=== PATIENT | male | born 1990 | race Caucasian/White ===

== ENCOUNTER 2020-09-07 13:17 | Emergency (ER) | payer OTHER ==
[~2020-09-07] VITALS: Ht 172.7 cm; Wt 71.1 kg
[2020-09-07 13:18] VITALS: BP 124/78
[2020-09-07] MEDS ORDERED: DOXY100C37 PO (14:30)
[2020-09-07] MEDS ORDERED: ERYT5OIN25 OD (14:30)
== END 2020-09-07 15:10 | disposition home or self-care (01) ==
LOC: M ED 13:17
DX: L73.2 Hidradenitis suppurativa (principal); H00.021 Hordeolum internum right upper eyelid; F17.200 Nicotine dependence, unspecified, uncomplicated; Z88.8 Allergy status to other drugs, medicaments and biological substances

== ENCOUNTER 2020-09-07 18:55 | Emergency (ER) | payer OTHER ==
[~2020-09-07] VITALS: Ht 172.7 cm; Wt 76.4 kg
[~2020-09-07 18:55] MED LIST: DOXY100C37 PO; ERYT5OIN25 OD
[2020-09-07] MEDS ORDERED: DOXYCYCLINE HYCLATE 100MG TABLET PO ONE (20:00)
[2020-09-07 20:48] VITALS: BP 140/80
== END 2020-09-07 21:00 | disposition home or self-care (01) ==
LOC: M ED 18:55
DX: Z13.39 Encounter for screening examination for other mental health and behavioral disorders (principal); F17.200 Nicotine dependence, unspecified, uncomplicated; Z88.8 Allergy status to other drugs, medicaments and biological substances

== ENCOUNTER 2020-09-16 10:31 | Inpatient (IN) | payer OTHER ==
[~2020-09-16] VITALS: Ht 172.7 cm; Wt 73.0 kg
[2020-09-16 11:18] LABS: HEMATOCRIT 49.4 % (42.0-52.0); HEMOGLOBIN 15.9 g/dl (13.5-17.5); MEAN CORPUSCULAR HEMOGLOBIN 28.3 pg (27.0-33.0); MEAN CORPUSCULAR HGB CONC 32.2 g/dl (32.0-36.5); MEAN CORPUSCULAR VOLUME 88.1 fl (80.0-96.0); PLATELET COUNT, AUTOMATED 325 10^3/uL (150-450); RED BLOOD COUNT 5.61 10^6/uL (4.30-6.10); WHITE BLOOD COUNT 5.9 10^3/uL (4.0-10.0)
[2020-09-16] MEDS ORDERED: LORazepam 2 MG TAB PO ONE (11:30)
[2020-09-16 12:03] LABS: ACETAMINOPHEN LEVEL < 2.0 UG/ML (10.0-30.0); ALBUMIN 3.9 GM/DL (3.2-5.2); ALT/SGPT 252 U/L (12-78); BILIRUBIN,DIRECT 0.2 MG/DL (0.0-0.2); BILIRUBIN,TOTAL 0.5 MG/DL (0.2-1.0); BLOOD UREA NITROGEN 13 MG/DL (7-18); CALCIUM LEVEL 9.7 MG/DL (8.5-10.1); CARBON DIOXIDE LEVEL 26 MEQ/L (21-32); CHLORIDE LEVEL 105 MEQ/L (98-107); ETHYL ALCOHOL (ETHANOL) < 0.003 % (0.000-0.010); GLOMERULAR FILTRATION RATE > 60.0 (>60); GLUCOSE, FASTING 147 MG/DL (70-100); POTASSIUM SERUM 4.8 MEQ/L (3.5-5.1); SALICYLATE LEVEL 2.7 MG/DL (5.0-30.0); SODIUM LEVEL 137 MEQ/L (136-145); THYROID STIMULATING HORMONE 0.915 uIU/ML (0.358-3.740); TOTAL PROTEIN 8.3 GM/DL (6.4-8.2)
[2020-09-16 14:21] LABS: AMPHETAMINES LEVEL URINE POSITIVE (NEGATIVE); BARBITURATES URINE NEGATIVE (NEGATIVE); BENZODIAZEPINES URINE NEGATIVE (NEGATIVE); CANNABINOIDS URINE NEGATIVE (NEGATIVE); COCAINE METABOLITE URINE NEGATIVE (NEGATIVE); METHADONE URINE NEGATIVE (NEGATIVE); OPIATES URINE NEGATIVE (NEGATIVE); PHENCYCLIDINE URINE NEGATIVE (NEGATIVE)
[2020-09-16 16:01] LABS: HEPATITIS B SURFACE ANTIGEN NEGATIVE (NEGATIVE)
[2020-09-16 16:29] LABS: HEPATITIS B CORE ANTIBODY IGM NEGATIVE (NEGATIVE)
[2020-09-16 16:32] LABS: HEPATITIS A ANTIBODY IGM NEGATIVE (NEGATIVE); HEPATITIS C VIRUS ABY INDEX > 11.0 INDEX (<0.8)
[2020-09-16] MEDS ORDERED: MOM 30ML SUSPENSION UDC PO PRN (17:15)
[2020-09-16] MEDS ORDERED: ACETAMINOPHEN TAB 650MG DOSE (2X325MG) PO PRN (17:15)
[2020-09-16] MEDS ORDERED: MAALOX 30 ML SUSP *UDC PO PRN (17:15)
[2020-09-16 17:24] VITALS: BP 137/86
--- NOTE | 2020-09-16 19:25 | ECGEPIP ---
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
[2020-09-16] MEDS: traZODone 50 MG TAB PO PRN (20:11)
[2020-09-16] MEDS: NICOTINE POLACRILEX 2 MG GUM PO PRN (20:11)
[2020-09-17 06:30] VITALS: BP 131/78
[2020-09-17] MEDS ORDERED: cloNIDine 0.1 MG TAB PO PRN (09:00)
[2020-09-17] MEDS: NICOTINE POLACRILEX 2 MG GUM PO PRN ×3 (09:34→20:06)
--- NOTE | 2020-09-17 11:05 | HPEPDOC ---
[facility] Medical History & Physical Date of Admission Sep 16, 2020 Date of Service: Sep 17, 2020 History and Physical CHIEF COMPLAINT: Suicidal ideation HISTORY OF PRESENT ILLNESS: 29M with PMHx Hep C admitted for suicidal ideation. Patient reported he intentionally attempted drug overdose with heroin, 'Lianne' and methamphetamine, and was considering jumping off a bridge, in an attempt to kill himself. He reports that he is homeless. He also reports association with substance abusers including family members. PAST MEDICAL HISTORY: #Hep C ALLERGIES: Please see below. REVIEW OF SYSTEMS: Negative except as per HPI. HOME MEDICATIONS: Please see below. PHYSICAL EXAMINATION: VITAL SIGNS: See below General: NAD, lying comfortably in bed Refused remained of physical examination. LABORATORY DATA: See below. MICROBIOLOGY: Please see below. A/P: 29 yo male for suicidal ideation, with PMHx of Hep C. #SI - as per primary team #HepC - was not interested in further follow up - continue to follow o/p as possible Thank you for this consultation. Please re-consult as needed. Vital Signs Vital Signs Date Time Temp Pulse Resp B/P (MAP) Pulse Ox O2 Delivery O2 Flow Rate FiO2 09/17/20 06:30 97.8 89 16 131/78 (95) 100 Room Air Laboratory Data Labs 24H Laboratory Tests 2 09/16/20 11:07: Nucleated Red Blood Cells % (auto) 0.0, Anion Gap 6L, Glomerular Filtration Rate > 60.0, Calcium Level 9.7, Total Bilirubin 0.5, Direct Bilirubin 0.2, Aspartate Amino Transf (AST/SGOT) 199H, Alanine Aminotransferase (ALT/SGPT) 252H, Alkaline Phosphatase 151H, Total Protein 8.3H, Albumin 3.9, Albumin/Globulin Ratio 0.9, Thyroid Stimulating Hormone (TSH) 0.915, Salicylates Level 2.7L, Acetaminophen Level < 2.0L, Ethyl Alcohol Level < 0.003, Hepatitis A IgM Antibody NEGATIVE, Hepatitis B Surface Antigen NEGATIVE, Hepatitis B Core IgM Antibody NEGATIVE, Hepatitis C Antibody Index > 11.0H 09/16/20 13:25: Urine Opiates Screen NEGATIVE, Urine Methadone Screen NEGATIVE, Urine Barbiturates Screen NEGATIVE, Urine Phencyclidine Screen NEGATIVE, Urine Amphetamines Screen POSITIVEH, Urine Benzodiazepines Screen NEGATIVE, Urine Cocaine Metabolite Screen NEGATIVE, Urine Cannabinoids Screen NEGATIVE 09/16/20 13:36: Coronavirus (COVID-19)(PCR) NEGATIVE CBC/BMP Laboratory Tests 09/16/20 11:07 Home Medications No Active Prescriptions or Reported Meds Allergies Coded Allergies: cyclobenzaprine (Verified Allergy, Unknown, 09/07/20) A-FIB/CHADSVASC A-FIB History Current/History of A-Fib/PAF?: No ESTEFANI DELGADO MD Sep 17, 2020 11:05
--- NOTE | 2020-09-17 12:16 | MHHPEPDOC ---
General Date Of Admission: Sep 16, 2020 Legal Status: 9.39 Chief Complaint Suicidal ideation with a plan. History of Present Illness HISTORY OF THE PRESENT ILLNESS: Patient is a 29 -year-old , male, who, as rafael ED report: "Pt presented to ED stated Suicidal with plan to overdose on Herion or Jump off the bridge. Pt reported came up to area a week ago to "visit" his cousin (also known substance abusers). Cousin kicked him out, Pt stated, "on street for 2 days". Pt looking for transportation back to [place]. Pt was denied transportation back to [place] buy DSS. Pt stated, "I will kill myself if I don't get help". Pt reported, "Try to use it everyday"; Per, Meth, and Herion. Pt declines rehab at this time. Pt reported attempted suicide "plenty of times", never reported it.." Psychiatric Review of Systems Depression (2 or more weeks): depressed mood, insomnia/hypersomnia (wakes up in the middle of the night but he goes back to sleep), feelings of excess/guilt, decreased energy, difficulty concentrating (he says he has ADHD), appetite changes (eats all the time), psychomotor changes (he's always moving), suicidal thoughts (with plan to jupoff a bridge) Skye (4 or more days of): decreased need for sleep (only when he is on drugs), engages in risky behavior (uses drugs, he uses heroin IV, per and meth) Psychosis: denies PTSD: denies Anxiety: gen/non-specific anxiety, situational anxiety, stressor related anxiety Anxiety/ 6 months or more of: difficulty concentrating, irritability, sleep d isturbance Past Psychiatric History Previous Psychiatric Diagnosis: Denies Previous Psychiatric Admissions: Denies Suicide Attempts: Denies Psychiatric Follow-up: Denies Psychiatric medications: He says he took Suboxone for 8 months. It ella prescr ibed by a provider in [place] Past Medical History Medical Problems Hepatitis "C" Head Injury: No Seizures: No Hospitalizations: Yes (when his livr nzymes are extremely high. He has been in [facility]) Surgeries: No Family Medical/Psychiatric HX Medical Problems Mother had HTN, diabetes, asthma, hypercholesterolemia, but she . His father is too but he doesn't know what medical problems he had. Psychiatric Disorders: No Addiction: Yes (His father abused substances (he doesn't know which substances) and he abused alcohol and his brother is a recovering addict) Suicide Attemps/Completions: No Addiction History nicotine, cocaine, opioids (he has used Fentanyl), methamphetamines, heroin, other Social History Childhood: It was alright, he lived with his parents, he grew up with his brother who lives in [place] but they don't talk Abuse/Trauma: Denies Current Living Situation: He says he lives by himself, he doesn't talk to his brother, he says his father and his mother re Education: He stepped out of the room and didn't answer my questions Employment: None. Social Support: H sys he doesn't have any social support. Legal: He doesn't provide with an answer. Marital: He didn't answer my question. Mental Status Examination General Appearance: unkempt, disheveled, appears stated age, hospital scubs/clothing Build: average Demeanor: hostile (when this telegraphic typewriter mechanic told him he could not be discharged today.), mistrustful, preoccupied, very figety Eye Contact: average Activity: anxious Behavior: uncooperative (since he was informed he wouldn't be leaving today), resistant, impulsive, aggressive (left the interview slamming doors, called me names on his way out of the door), hyperactive, restless Speech: rapid, spontaneous, normal volume Mood: anxious, angry, irritable Affect: full, inappropriate, anxious, hostile Thought Process: racing, depressed Thought Content (Delusions): none reported, paranoia Thought Content (Other): preoccupied, obsessional (about leaving, he says [place] is pretty bad for him. Obsessed about getting discharged), ideas of reference, appears paranoid Perception (Hallucinations): none reported Perception (Other): none reported Cognition (Impairment of): none reported Cognition(Intelligence Est.): average Oriented: Awake, Alert, Oriented times three Insight: poor Judgment: Poor Psychosis: Denies Diagnoses 1. Unspecified depressive disorder 2. R/O substance induced mood disorder 3. Polysubstance use disorder A-FIB/CHADSVASC A-FIB History Current/History of A-Fib/PAF?: No Current PO Anticoag Therapy: No Age/Risk Factor Scoring CHADSVASC: CHADSVASC Response (Comments) Value Age Risk Factor Age < 65 years old 0 Gender Risk Factor Male 0 Hx of CHF No 0 Hx of HTN No 0 Hx of Stroke/TIA/or VTE No 0 Hx of Diabetes No 0 Hx of Vascular Disease No 0 Total 0 Treatment Treatment ordered: NONE Reason Anticoagulant not given: Not indicated/[id number] Initial Treatment Plan 1. Patient was admitted on a [9.39] status. 2. Complete history was obtained. 3. With patients permission, family will be contacted and database will be expanded. 4. Patients medication regimen will be reviewed and changed accordingly. 5. Patient will be provided with protected environment. 6. Patient will be treated with individual, group, and milieu therapies. 7. Patient will receive supportive psych-education. 8. Discharge planning will commence immediately. 9. Outpatient follow-up treatment will be strongly recommended. 10. The initial treatment plan will focus initially on: * Depression. * Risk for suicide. ESTIMATED LENGTH OF STAY: - DAYS. TIME SPENT COUNSELING AND COORDINATING INITIAL CARE: minutes. Vital Signs Vital Signs Date Time Temp Pulse Resp B/P (MAP) Pulse Ox O2 Delivery O2 Flow Rate FiO2 09/17/20 06:30 97.8 89 16 131/78 (95) 100 Room Air Laboratory Data 24H Labs Laboratory Tests 2 09/16/20 13:25: Urine Opiates Screen NEGATIVE, Urine Methadone Screen NEGATIVE, Urine Barbiturates Screen NEGATIVE, Urine Phencyclidine Screen NEGATIVE, Urine Amphetamines Screen POSITIVEH, Urine Benzodiazepines Screen NEGATIVE, Urine Cocaine Metabolite Screen NEGATIVE, Urine Cannabinoids Screen NEGATIVE 09/16/20 13:36: Coronavirus (COVID-19)(PCR) NEGATIVE Medications No Active Prescriptions or Reported Meds Allergies Coded Allergies: cyclobenzaprine (Verified Allergy, Unknown, 09/07/20) KORTNEY LAMA MD Sep 17, 2020 11:56
[2020-09-17] MEDS: traZODone 50 MG TAB PO PRN (20:05)
[2020-09-17] MEDS: OLANZapine ORAL DISINTEGRATING TAB 5MG PO PRN (20:05)
[2020-09-18 06:19] VITALS: BP 146/85
[2020-09-18] MEDS: OLANZapine ORAL DISINTEGRATING TAB 5MG PO PRN ×2 (10:33→18:42)
[2020-09-18] MEDS: NICOTINE POLACRILEX 2 MG GUM PO PRN ×2 (10:33→17:54)
--- NOTE | 2020-09-18 12:38 | MHIPNPDOC ---
[facility] Progress Note Progress Note DATE OF SERVICE: 09/18/20 HISTORY: Patient is a 29 -year-old , male, who, as rafael ED report: "Pt presented to ED stated Suicidal with plan to overdose on Herion or Jump off the bridge. Pt reported came up to area a week ago to "visit" his cousin (also known substance abusers). Cousin kicked him out, Pt stated, "on street for 2 days". Pt looking for transportation back to [place]. Pt was denied transportation back to [employer] buy DSS. Pt stated, "I will kill myself if I don't get help". Pt reported, "Try to use it everyday"; Lianne, Meth, and Herion. Pt declines rehab at this time. Pt reported attempted suicide "plenty of times", never reported it.." VITAL SIGNS: See below. NEW TEST RESULTS: See below CURRENT MEDICATIONS: See below. MENTAL STATUS EXAMINATION: The patient refused to speak with me because he wants to be discharged and he knows I won't discharge him DIAGNOSES: 1. Unspecified depressive disorder 2. R/O substance induced mood disorder 3. Polysubstance use disorder ASSESSMENT: I was not able to assess him but I understand he has been in his room and yesterday afternoon after he spoke to me, he refused to talk to staff members until late in the afternoon. He is probably having cravings, but when he was admitted he said he wanted to jump [place] the bridge and in the river. Now he denies it but we need to observe him a little bit longer, maybe another day, in order to discharge him. MANAGEMENT PLAN: continue with the same treatment plan TIME SPENT: 5 minutes. Vital Signs Vital Signs Date Time Temp Pulse Resp B/P (MAP) Pulse Ox O2 Delivery O2 Flow Rate FiO2 09/18/20 06:19 97.9 89 18 146/85 (105) 99 Room Air Current Medications Current Medications Medications (Trade) Dose Ordered Sig/Flora Route PRN Reason Start Time Stop Time Status Last Admin Dose Admin Acetaminophen (Tylenol Tab) 650 mg Q6HP PRN PO HEADACHE or DISCOMFORT 09/16/20 17:15 Al Hydrox/Mg Hydrox/Simethicone (Mylanta) 30 ml Q4HP PRN PO HEARTBURN/INDIGESTION 09/16/20 17:15 Clonidine HCl (Catapres) 0.1 mg TID PRN PO HEROIN WITHDRAWAL 09/17/20 09:00 Home Med (Med Rec Complete!) ASDIRECTED XX 09/16/20 14:15 09/16/20 14:07 DC Magnesium Hydroxide (Milk Of Magnesia) 30 ml DAILYPRN PRN PO CONSTIPATION 09/16/20 17:15 Nicotine (Nicorette) 2 mg Q4HP PRN PO NICOTINE WITHDRAWAL 09/16/20 18:00 09/18/20 10:33 Olanzapine (ZyPREXA ZYDIS) 5 mg Q6HP PRN PO AGITATION 09/16/20 17:15 09/18/20 10:33 Trazodone HCl (Desyrel) 50 mg QHSP PRN PO INSOMNIA 09/16/20 17:15 09/17/20 20:05 Allergies Coded Allergies: cyclobenzaprine (Verified Allergy, Unknown, 09/07/20) KORTNEY LAMA MD Sep 18, 2020 12:27
[2020-09-18 17:53] VITALS: BP 145/82
[2020-09-18 17:54] VITALS: BP 145/82
[2020-09-19 06:42] VITALS: BP 129/77
[2020-09-19] MEDS: NICOTINE POLACRILEX 2 MG GUM PO PRN ×3 (08:56→19:15)
--- NOTE | 2020-09-19 11:15 | MHIPNPDOC ---
[facility] Progress Note Progress Note DATE OF SERVICE: 09/19/20 HISTORY: . VITAL SIGNS: See below. NEW TEST RESULTS: . CURRENT MEDICATIONS: See below. MENTAL STATUS EXAMINATION: Patient is a -year old male, who is . Speech: Is . Language skills are . Thought processes including: . Thought content: . Abstract reasoning, and computation: . Description of assoc iations: . Description of abnormal or psychotic thoughts: . Judgment: . Insight: [very limited, good, fair. poor]. Orientation: . Recent and remote memory: . Attention span and concentration: . Language: . Fund of knowledge: . Mood: . Affect: . DIAGNOSES: 1. . 2. . 3. . ASSESSMENT: MANAGEMENT PLAN: . TIME SPENT: minutes. Vital Signs Vital Signs Date Time Temp Pulse Resp B/P (MAP) Pulse Ox O2 Delivery O2 Flow Rate FiO2 09/19/20 06:42 97.7 82 14 129/77 (94) Room Air 09/18/20 06:19 99 Current Medications Current Medications Medications (Trade) Dose Ordered Sig/Flora Route PRN Reason Start Time Stop Time Status Last Admin Dose Admin Acetaminophen (Tylenol Tab) 650 mg Q6HP PRN PO HEADACHE or DISCOMFORT 09/16/20 17:15 Al Hydrox/Mg Hydrox/Simethicone (Mylanta) 30 ml Q4HP PRN PO HEARTBURN/INDIGESTION 09/16/20 17:15 Clonidine HCl (Catapres) 0.1 mg TID PRN PO HEROIN WITHDRAWAL 09/17/20 09:00 09/18/20 17:54 Home Med (Med Rec Complete!) ASDIRECTED XX 09/16/20 14:15 09/16/20 14:07 DC Magnesium Hydroxide (Milk Of Magnesia) 30 ml DAILYPRN PRN PO CONSTIPATION 09/16/20 17:15 Nicotine (Nicorette) 2 mg Q4HP PRN PO NICOTINE WITHDRAWAL 09/16/20 18:00 09/19/20 08:56 Olanzapine (ZyPREXA ZYDIS) 5 mg Q6HP PRN PO AGITATION 09/16/20 17:15 09/18/20 18:42 Trazodone HCl (Desyrel) 50 mg QHSP PRN PO INSOMNIA 09/16/20 17:15 09/17/20 20:05 Allergies Coded Allergies: cyclobenzaprine (Verified Allergy, Unknown, 09/07/20) WHITNEY BENTLEY DO Sep 19, 2020 11:15
[2020-09-19] MEDS: OLANZapine ORAL DISINTEGRATING TAB 5MG PO PRN ×2 (13:44→19:54)
[2020-09-19] MEDS ORDERED: BUPRENORPHINE/NALOXONE 8-2MG SUBLINGUAL TABLET(SUBOXONE) SL ONE (13:45)
[2020-09-19 18:01] VITALS: BP 128/86
[2020-09-19] MEDS: traZODone 50 MG TAB PO PRN (19:54)
[2020-09-19] MEDS ORDERED: IBUPROFEN 600MG TAB PO ONE (20:30)
[2020-09-19] MEDS ORDERED: ONDANSETRON 4 MG ORAL DISINTEGRATING TAB PO ONE (20:30)
[2020-09-20] MEDS: NICOTINE POLACRILEX 2 MG GUM PO PRN ×2 (06:22→10:42)
[2020-09-20 06:46] VITALS: BP 128/87
[2020-09-20] MEDS ORDERED: BUPRENORPHINE/NALOXONE 8-2MG SUBLINGUAL TABLET(SUBOXONE) SL SCH (09:00)
--- NOTE | 2020-09-20 10:52 | MHDSPDOC ---
[facility] Discharge Summary Discharge Summary DATE OF ADMISSION: Sep 16, 2020 at 17:08 DATE OF DISCHARGE: Sep 20, 2020 at 1037 DISCHARGE DIAGNOSES: 1. Unspecified depressive disorder 2. substance induced mood disorder 3. Polysubstance use disorder REASON FOR ADMISSION: Patient is a 29 -year-old [place], Unemployed, [place], , male, who, as per ED report: "Pt presented to ED stated Suicidal with plan to overdose on Heroin or jump off the bridge. Pt reported came up to area a week ago to "visit" his cousin (also known substance abusers). Cousin kicked him out, Pt stated, "on street for 2 days". Pt looking for transportation back to [place]. Pt was denied transportation back to [place] by [facility]. Pt stated, "I will kill myself if I don't get help". Pt reported, "Try to use it everyday"; Lianne, Meth, and Heroin. Pt declines rehab at this time. Pt reported attempted suicide "plenty of times", never reported it." CONSULTANTS INVOLVED: See Medical H + P by Hospitalist TREATMENT AND PROGRESS ON THE UNIT : Patient was admitted to the [facility] on a 9.39 legal status he was afforded the following treatment modalities: 1) Individual Therapy 2) Group Therapy 3) Medication Management 4) Milieu Therapy 5) Safe Environment HOSPITAL COURSE: Patient was admitted to [facility] on a 9.39 legal status and was started on Suboxone and Clonidine. He requested to continue this but this provider is unable to continue it. He was at times very vulgar on the unit and was seen to be reactive. He did not report continued suicidal ideation and it was reported that he had normal mental status over the weekend and was requesting discharge yesterday. DISCHARGE ASSESSMENT: Patient is being discharged today, he was reporting that he is returning to his apartment in [place]. He does not have a PCP and dec lines outpatient mental health services. He also is aware that this provider cannot renew his Suboxone. He declined his Clonidine renewal. Patient was encouraged to be seen at a [facility] and be seen in walk- in hours. Patient verbalized understanding. MENTAL STATUS EXAMINATION ON DISCHARGE: Patient is a 29 -year-old Single, Unemployed, Domiciled, , male who reported suicidal ideation after his cousin kicked him out of his apartment. Patient reported that he came here to visit him but is from [place], [place]. He states that he is a polysubstance abuser and should not have come to see his cousin who is also an "addict". Patient presents with fair hygiene and grooming. Smiles on approach. Has fair psychomotor movements, seems quite restless in the interview but cooperative and pleasant, makes good eye contact. Speech: Is fluid, conversant, normal rate, tone and volume Language skills are intact Thought processes including: linear and goal oriented Thought content: denies depression and anxiety, denies suicidal/homicidal ideation planning or intent. Abstract reasoning, and computation: fair Description of associations: denies, none observed Description of abnormal or psychotic thoughts: denies, none observed. Judgment: fair Insight: fair Orientation: alert and oriented to person, place, time and situation Recent and remote memory: intact Attention span and concentration: good Language: expansive Fund of knowledge: below average Mood: denies Affect: reactive MEDICATIONS ON DISCHARGE: Patient declined all medications PLAN/FOLLOWUP ARRANGEMENTS: He was given times for walk in hours at [facility]) The amount of time spent in the coordination of care for this patient was a pproximately 15 minutes. Vital Signs/I&Os Vital Signs Date Time Temp Pulse Resp B/P (MAP) Pulse Ox O2 Delivery O2 Flow Rate FiO2 09/20/20 06:46 96.9 92 16 128/87 (101) 09/19/20 06:42 Room Air 09/18/20 06:19 99 Medications No Active Prescriptions or Reported Meds Allergies Coded Allergies: cyclobenzaprine (Verified Allergy, Unknown, 09/07/20) OK MCGARRY NP Sep 20, 2020 10:52
== END 2020-09-20 11:45 | disposition home or self-care (01) | DRG 754 ==
LOC: M ED 10:31 → M ED INP 17:08 → M PSY 17:38
PROVIDERS: ADMIT Psychiatry & Neurology Addiction Medicine; ATTEND Psychiatry & Neurology Addiction Medicine
DX: F32.9 Major depressive disorder, single episode, unspecified (principal); F19.94 Other psychoactive substance use, unspecified with psychoactive substance-induced mood disorder; Z88.8 Allergy status to other drugs, medicaments and biological substances; R45.851 Suicidal ideations

== ENCOUNTER 2020-10-20 07:56 | Emergency (ER) | payer OTHER ==
[~2020-10-20] VITALS: Ht 172.7 cm; Wt 79.5 kg
[2020-10-20] MEDS ORDERED: SUBO8MIS SL (08:56)
--- NOTE | 2020-10-20 09:09 | REP ---
INDICATION: cough, congestion r/o pneumonia. COMPARISON: . TECHNIQUE: Upright PA and lateral chest. FINDINGS: The lung spencer are clear. Cardiac size is normal. The pamela, mediastinum and skeletal structures are unremarkable. IMPRESSION: Essentially negative portable chest <Electronically signed by Braydon Kingston > 10/20/20 0928
[2020-10-20] MEDS ORDERED: TESS100C PO ×2 (09:16→21:05)
[2020-10-20 09:26] VITALS: BP 132/94
[2020-10-20 09:31] VITALS: O2SAT 96
[2020-10-20] MEDS ORDERED: TRAZ-257 PO (21:05)
[2020-10-20] MEDS ORDERED: VENL75CA47 PO (21:05)
[2020-10-20] MEDS ORDERED: RISP-8 PO (21:05)
[2020-10-20] MEDS ORDERED: AMMO12LO TOP (21:05)
[2020-10-20] MEDS ORDERED: CLOB0.0548 TOP (21:05)
[2020-10-20] MEDS ORDERED: MELA3TAB30 PO (21:05)
[2020-10-20] MEDS ORDERED: SUBO2MIS SL (21:05)
[2020-10-20] MEDS ORDERED: IBUP40TA PO (21:05)
[2020-10-20] MEDS ORDERED: NICO2GUM50 PO (21:05)
[2020-10-20] MEDS ORDERED: MED REC COMMENT (21:05)
[2020-10-20] MEDS ORDERED: NICO1DIS12 TD (21:05)
== END 2020-10-20 09:33 | disposition home or self-care (01) ==
LOC: M ED 07:56
DX: U07.1 COVID-19 (principal); R55 Syncope and collapse; F19.10 Other psychoactive substance abuse, uncomplicated; B17.9 Acute viral hepatitis, unspecified; F17.200 Nicotine dependence, unspecified, uncomplicated; Z88.1 Allergy status to other antibiotic agents; Z79.899 Other long term (current) drug therapy
CPT/HCPCS: 71045; 99284; U0003

== ENCOUNTER 2020-10-20 17:11 | Inpatient (IN) | payer OTHER ==
[~2020-10-20] VITALS: Ht 172.7 cm; Wt 75.6 kg
[~2020-10-20 17:11] MED LIST changes: +SUBO8MIS SL; +TESS100C PO
[2020-10-20] MEDS ORDERED: LORazepam 2 MG TAB PO STA (17:27)
[2020-10-20 18:25] LABS: RSV AMPLIFICATION NEGATIVE (NEGATIVE)
--- NOTE | 2020-10-20 19:03 | REP ---
INDICATION: Syncope/near-syncope. 6:52 p.m. film. COMPARISON: Comparison chest x-ray October 20, 2020 at 8:48 a.m.. TECHNIQUE: Portable upright AP chest radiograph. FINDINGS: The lungs are well inflated and free of infiltrate. Pleural angles are sharp. Heart size is normal. Pulmonary vasculature is not increased. IMPRESSION: No active disease. <Electronically signed by Gideon Santiago > 10/20/20 [id number]
[2020-10-20] MEDS ORDERED: LORazepam 2 MG/ML VIAL IM STA (19:11)
[2020-10-20] MEDS ORDERED: HALOPERIDOL 5MG/ML VIAL (J1630 PER 1) IM STA (19:11)
[2020-10-20] MEDS ORDERED: LORazepam 2 MG/ML VIAL As Ordered ONE (19:25)
[2020-10-20 19:33] LABS: BASO % 0.2 % (0.0-1.0); HEMATOCRIT 39.4 % (42.0-52.0); LYMPH # 1.1 10^3/uL (1.5-5.0); LYMPH % 10.9 % (24.0-44.0); MEAN CORPUSCULAR HEMOGLOBIN 28.3 pg (27.0-33.0); MEAN CORPUSCULAR VOLUME 85.8 fl (80.0-96.0); NEUTROPHILS # 8.1 10^3/uL (1.5-8.5); NEUTROPHILS % 78.5 % (36.0-66.0); PLATELET COUNT, AUTOMATED 211 10^3/uL (150-450); RED BLOOD COUNT 4.59 10^6/uL (4.30-6.10); WHITE BLOOD COUNT 10.4 10^3/uL (4.0-10.0)
[2020-10-20 19:47] LABS: INR 0.95; PROTHROMBIN TIME 12.9 SECONDS (12.5-14.3)
[2020-10-20 19:48] LABS: PARTIAL THROMBOPLASTIN TIME 33.2 SECONDS (24.2-38.5)
[2020-10-20 19:50] LABS: D-DIMER QUANT 1111.34 ng/ml (<500)
[2020-10-20 19:56] LABS: OSMOLALITY SERUM 279 MOSM/KG (275-295)
[2020-10-20 20:08] LABS: ACETAMINOPHEN LEVEL < 2.0 UG/ML (10.0-30.0); ALBUMIN 4.2 GM/DL (3.2-5.2); ALT/SGPT 378 U/L (12-78); BILIRUBIN,DIRECT 0.4 MG/DL (0.0-0.2); BLOOD UREA NITROGEN 22 MG/DL (7-18); CALCIUM LEVEL 8.6 MG/DL (8.5-10.1); CARBON DIOXIDE LEVEL 26 MEQ/L (21-32); CHLORIDE LEVEL 96 MEQ/L (98-107); CK-MB VALUE MASS 7.7 NG/ML (<3.6); CPK CREATINE PHOSPHOKINASE 2183 U/L (39-308); ETHYL ALCOHOL (ETHANOL) < 0.003 % (0.000-0.010); FREE T4 1.41 NG/DL (0.76-1.46); GLOMERULAR FILTRATION RATE > 60.0 (>60); GLUCOSE, FASTING 107 MG/DL (70-100); LDH LACTATE DEHYDROGENASE 356 U/L (87-241); MAGNESIUM LEVEL 1.5 MG/DL (1.8-2.4); MB/CK RELATIVE INDEX 0.35 (< OR =4); POTASSIUM SERUM 4.1 MEQ/L (3.5-5.1); SALICYLATE LEVEL < 1.7 MG/DL (5.0-30.0); SODIUM LEVEL 132 MEQ/L (136-145); TROPONIN I < 0.02 NG/ML (< 0.10)
--- NOTE | 2020-10-20 20:20 | HPEPDOC ---
[facility] Medical History & Physical Date of Admission Oct 20, 2020 Date of Service: Oct 21, 2020 Attending Physician: PAUL JIM MD History and Physical TIME OF SERVICE: 12:02 AM CHIEF COMPLAINT: Fever HISTORY OF PRESENT ILLNESS: The majority of the history was obtained from Dr. Briones and Dr. Vallejo. The patient was sedated at the time of my evaluation. This 29-year-old homeless gentleman initially presented to the hospital early on the morning of October 20 with complaints of fever, cough productive of green thick sputum and runny nose after being exposed to a person with COVID 19; he had his COVID test done and was told to remain in quarantine until the test results returned. Later on on the afternoon was found by EMS lying on the ground and was noted to have a fever, therefore, he was brought back to the ER. On initial assessment, he was noted to be agitated, was crying and telling staff that he didn't want to return to the hotel where he was in quarantine and that he didn't think he was going to make it. Due to suspicion that he might be intoxicated possibly with Lianne he was given Ativan and Haldol. At the time of my evaluation, the patient was sedated, intermittently arousable but unable to answer questions or consistently follow commands. REVIEW OF SYSTEMS: Unobtainable PAST MEDICAL/ SURGICAL HISTORY: Hepatitis C Anxiety SOCIAL HISTORY: Polysubstance abuse - tobacco & Suboxone Homelessness FAMILY HISTORY: Unobtainable ALLERGIES: Please see below. HOME MEDICATIONS: Please see below. PHYSICAL EXAMINATION: Vital Signs Date Time Temp Pulse Resp B/P (MAP) Pulse Ox O2 Delivery O2 Flow Rate FiO2 10/20/20 17:30 125 20 181/84 96 Room Air 10/21/20 06:20 98.6 GEN: well-nourished / disheveled INTEGUMENT: not flushed/ not jaundice HEENT: lips acyanotic /mucus membranes dry CVS: tachycardic /NMRG LUNGS: lungs are clear to auscultation bilaterally on room air ABDOMEN: Contour (flat) / soft & he doesn't grimace with palpation MSK/EXTREMITIES: NCAT / range of motion intact in all 4 extremities NEURO: Normal Babinski response PSYCH: lethargic / not consistently following commands LABORATORY DATA: 10/21/20 07:07 10/20/20 17:30: Anion Gap 10, Glomerular Filtration Rate > 60.0, Osmolality 279, Calcium Level 8.6, Magnesium Level 1.5L, Total Bilirubin 1.0, Direct Bilirubin 0.4H, Aspartate Amino Transf (AST/SGOT) 158H, Alanine Aminotransferase (ALT/SGPT) 378H, Alkaline Phosphatase 159H, Lactate Dehydrogenase 356H, Total Creatine Kinase 2183H, Creatine Kinase MB 7.7H, Creatine Kinase MB Relative Index 0.35, Troponin I < 0.02, Total Protein 8.0, Albumin 4.2, Albumin/Globulin Ratio 1.1, Thyroid Stimulating Hormone (TSH) 2.670, Free Thyroxine 1.41, Salicylates Level < 1.7L, Acetaminophen Level < 2.0L, Ethyl Alcohol Level < 0.003 10/20/20 17:38: Coronavirus (COVID-19)(PCR) POSITIVEA, Influenza Type A (RT-PCR) NEGATIVE, Influenza Type B (RT-PCR) NEGATIVE, Respiratory Syncytial Virus (PCR) NEGATIVE 10/20/20 18:41: Prothrombin Time 12.9, Prothromb Time International Ratio 0.95, Activated Partial Thromboplast Time 33.2, D-Dimer, Quantitative 1111.34H 10/20/20 18:59: Immature Granulocyte % (Auto) 0.4, Neutrophils (%) (Auto) 78.5H, Lymphocytes (%) (Auto) 10.9L, Monocytes (%) (Auto) 10.0H, Eosinophils (%) (Auto) 0.0, Basophils (%) (Auto) 0.2, Neutrophils # (Auto) 8.1, Lymphocytes # (Auto) 1.1L, Monocytes # (Auto) 1.0H, Eosinophils # (Auto) 0.0, Basophils # (Auto) 0.0, Nucleated Red Blood Cells % (auto) 0.0 IMAGING: Chest xray "IMPRESSION: No active disease." MICROBIOLOGY: Please see below. EKG: And his tachycardia with a heart rate of 100 ASSESSMENT: Mr. Owens is a 29-year-old with a history of hepatitis C, anxiety and polysubstance abuse who will be admitted primary for management rhabdomyolysis; he has mild COVID 19. PLAN: 1. Rhabdomyolysis / elevated CK Likely secondary to agitation from polysubstance abuse rather than COVID 19 CPK > 2000 Gonzalez Rhabdomyolysis Risk Score to predict the risk of severe LUIS ANGEL or mortality in patients with rhabdomyolysis = 0 Plan: admit to medical floor / aggressive hydration / f/u drug screen / f/u serial BMP & CPK 2. Mild COVID-19 Tachycardia may be due to intoxication rather than Covid 19. His LFTs are chronically elevated, which is likely due to hep C, rather than COVID 19. Per d/w EMS reported that the patient had a fever. Plan: contact & air borne precautions /continuous pulse ox/ supplemental O2 to target O2 sats between 92-95% / in 12 H f/u repeat WBC # (if low indicates a poor prognosis), plts (if low indicates bad prognosis), CRP (if high indicates bad prognosis), INR, BMP, fibrinogen, INR, D-dimer, PT, PTT (if patient has DIC indicates bad prognosis), ferritin, LDH, procalcitonin (if low will dc ceftriaxone and azithromycin), f/u sputum cx, strep pneumo, legionella to r/o bacterial PNA, troponins / VBG to assess for hypoxia 3. Agitation likely 2/2 polysubstance abuse Plan: Resume Suboxone and nicotine patches / 1:1 sitter 4. Hypomagnesemia Plan: Mag oxide DVT PROPHYLAXIS: lovenox & aspirin DISPOSITION: home after more than 2 midnight's stay / PFS consult has been placed for assistance with housing Home Medications Scheduled Ammonium Lactate (Ammonium Lactate) 12% Lotion, 1 DOSE TOP BID Buprenorphine HCl/Naloxone HCl (Suboxone 2 mg-0.5 mg Sl Film) 1 Each Film, 1 MIS SL BID Clobetasol Propionate/Emoll (Clobetasol Emollient 0.05% Crm) 0.05% 15GM Cream..g., 1 APLCT TOP BID APPLY TO BACK Melatonin (Melatonin) 3 Mg Tablet, 3 MG PO QHS Nicotine (Nicotine Patch) 21 Mg Patch.td24, 21 MG TD DAILY Risperidone (Risperidone) 1 Mg Tablet, 1 MG PO BID Trazodone HCl (Trazodone HCl) 100 Mg Tablet, 100 MG PO QHS Venlafaxine HCl (Venlafaxine HCl ER) 75 Mg Cap.er.24h, 75 MG PO DAILY Scheduled PRN Benzonatate (Tessalon Perle) 100 Mg Capsule, 100 MG PO TID PRN for COUGH Ibuprofen (Ibuprofen) 400 Mg Tablet, 400 MG PO Q6H PRN for PAIN Nicotine Polacrilex (Nicotine Gum) 2 Mg Gum, 2 MG PO QID PRN for NICOTINE WITHDRAWAL Miscellaneous Medications [Med Rec Comment] MED LIST OBTAINED FROM [facility], MEDS ARE READY BUT HAVE NOT BEEN PICKED UP YET Allergies Coded Allergies: cyclobenzaprine (Verified Allergy, Unknown, 09/07/20) A-FIB/CHADSVASC A-FIB History Current/History of A-Fib/PAF?: No Current PO Anticoag Therapy: No PAUL JIM MD Oct 20, 2020 20:20
[2020-10-20] MEDS ORDERED: MAALOX 30 ML SUSP *UDC PO PRN (20:30)
[2020-10-20] MEDS ORDERED: MOM 30ML SUSPENSION UDC PO PRN (20:30)
[2020-10-20] MEDS ORDERED: NS 1,000 ML IV ONE ×2 (20:30)
[2020-10-20] MEDS ORDERED: ACETAMINOPHEN TAB 650MG DOSE (2X325MG) PO PRN (20:30)
[2020-10-20] MEDS ORDERED: MAGNESIUM OXIDE 400 MG TAB (MAG-OX) PO ONE (20:45)
[2020-10-20] MEDS ORDERED: cefTRIAXone SOD 2 GM in D5W MINI-BAG PLUS 50 ML IV SCH (21:00)
[2020-10-20] MEDS ORDERED: NICO2GUM50 PO (21:05)
[2020-10-20] MEDS ORDERED: RISP-8 PO (21:05)
[2020-10-20] MEDS ORDERED: MELA3TAB30 PO (21:05)
[2020-10-20] MEDS ORDERED: CLOB0.0548 TOP (21:05)
[2020-10-20] MEDS ORDERED: NICO1DIS12 TD (21:05)
[2020-10-20] MEDS ORDERED: AMMO12LO TOP (21:05)
[2020-10-20] MEDS ORDERED: VENL75CA47 PO (21:05)
[2020-10-20] MEDS ORDERED: IBUP40TA PO (21:05)
[2020-10-20] MEDS ORDERED: TRAZ-257 PO (21:05)
[2020-10-20] MEDS ORDERED: MED REC COMMENT (21:05)
[2020-10-20] MEDS ORDERED: TESS100C PO (21:05)
[2020-10-20] MEDS ORDERED: SUBO2MIS SL (21:05)
[2020-10-20 21:48] LABS: HEPATITIS B SURFACE ANTIGEN NEGATIVE (NEGATIVE)
[2020-10-20] MEDS ORDERED: AZITHROMYCIN INJ 500 MG, VIAL MATE ADAPTER 1 EACH in D5W 250 ML IV SCH (22:00)
[2020-10-20 22:17] LABS: HIV 1&2 SCREEN CENTAUR NEGATIVE (NEGATIVE)
[2020-10-21] MEDS ORDERED: NS 1,000 ML IV SCH
[2020-10-21] MEDS ORDERED: NICOTINE POLACRILEX 2 MG GUM PO PRN (01:00)
[2020-10-21] MEDS: traZODone 100 MG TAB PO SCH ×2 (06:16→22:16)
[2020-10-21] MEDS: LACTIC ACID 12% LOTION 225 GM BTL TOP SCH ×3 (06:17→22:20)
[2020-10-21] MEDS: risperiDONE 1 MG TAB PO SCH ×3 (06:17→22:16)
[2020-10-21] MEDS: BUPRENORPHINE/NALOXONE 2-0.5MG SUBLINGUAL TABLET(SUBOXONE) SL SCH ×3 (06:17→22:16)
[2020-10-21] MEDS: CLOBETASOL PROPIONATE EMOLLIENT 0.05% CR 60 GM TOP SCH ×3 (06:17→22:20)
[2020-10-21 06:20] VITALS: BP 120/71
[2020-10-21 06:48] VITALS: O2SAT 98
[2020-10-21] MEDS: NS 1,000 ML IV SCH ×2 (07:01→13:10)
[2020-10-21 07:14] LABS: VENOUS BASE EXCESS 3.1 (-2.0-2.0); VENOUS HCO3 24.9 MEQ/L (23.0-27.0); VENOUS O2 SATURATION 99.4 % (60.0-80.0); VENOUS PARTIAL PRESSURE CO2 29.8 mmHg (38.0-50.0); VENOUS PH 7.539 UNITS (7.330-7.430); VENOUS STANDARD HCO3 27.3 MEQ/L; VENOUS TOTAL CO2 25.8 MEQ/L (24.0-28.0)
[2020-10-21 07:22] LABS: BASO % 0.2 % (0.0-1.0); HEMATOCRIT 39.1 % (42.0-52.0); HEMOGLOBIN 12.7 g/dl (13.5-17.5); LYMPH # 1.5 10^3/uL (1.5-5.0); LYMPH % 14.8 % (24.0-44.0); MEAN CORPUSCULAR HGB CONC 32.5 g/dl (32.0-36.5); MEAN CORPUSCULAR VOLUME 86.3 fl (80.0-96.0); MONO # 1.1 10^3/uL (0.0-0.8); MONO % 10.6 % (0.0-5.0); NEUTROPHILS # 7.3 10^3/uL (1.5-8.5); PLATELET COUNT, AUTOMATED 175 10^3/uL (150-450); RED BLOOD COUNT 4.53 10^6/uL (4.30-6.10); WHITE BLOOD COUNT 9.9 10^3/uL (4.0-10.0)
--- NOTE | 2020-10-21 07:29 | ECGEPIP ---
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
[2020-10-21 07:32] LABS: PROTHROMBIN TIME 13.4 SECONDS (12.5-14.3)
[2020-10-21 07:33] LABS: PARTIAL THROMBOPLASTIN TIME 36.5 SECONDS (24.2-38.5)
[2020-10-21 07:36] LABS: D-DIMER QUANT 959.97 ng/ml (<500)
[2020-10-21 07:56] LABS: CPK CREATINE PHOSPHOKINASE 2155 U/L (39-308); FERRITIN 261 NG/ML (26-388); LDH LACTATE DEHYDROGENASE 272 U/L (87-241); NT-PRO BNP 148 PG/ML (<125); PHOSPHORUS LEVEL 2.2 MG/DL (2.5-4.9); TRIGLYCERIDES LEVEL 46 MG/DL (<150); TROPONIN I < 0.02 NG/ML (< 0.10)
[2020-10-21] MEDS: ASPIRIN 81 MG ENTERIC TAB PO SCH (09:00)
[2020-10-21] MEDS: VENLAFAXINE **XR** 75MG CAPSULE PO SCH (09:00)
[2020-10-21] MEDS: NICOTINE 21MG/24HR 1 EA TRANSDERMAL TD SCH (09:00)
[2020-10-21] MEDS: ENOXAPARIN 40MG/0.4ML SYRINGE (J1650 PER 10MG) SC SCH (09:00)
[2020-10-21 20:00] VITALS: BP 127/64
--- NOTE | 2020-10-21 21:07 | IPNPDOC ---
Subjective Date Seen The patient was seen on 10/21/20. Subjective Chief Complaint/HPI Mr. Owens is a 29 year old male who's homeless and COVID 19 positive here with rhabdomyolysis. Today, he denies any chest pain, dyspnea, or abdominal pain. Spoke with PFS, Miguel Bradshaw, about case. When patient is cleared, he will have a food box and a place to stay until Saturday10/25/2020. Objective Physical Examination General Exam: Positive: Alert, Cooperative Eye Exam: Positive: EOMI; Negative: Sclera icteric ENT Exam: Positive: Atraumatic Neck Exam: Positive: Supple Chest Exam: Positive: Clear to auscultation Heart Exam: Positive: Rate Normal, Regular Rhythm Abdomen Exam: Positive: Normal bowel sounds, Soft; Negative: Tenderness Extremity Exam: Negative: Edema Skin Exam: Positive: Nl turgor and temperature Neuro Exam: Positive: Cranial Nerves 3-12 NL Psych Exam: Positive: Mental status NL, Mood NL Assessment /Plan Assessment Mr. Owens is a 29 year old male who's homeless and COVID 19 positive here with rhabdomyolysis. When his rhabdomyolysis improves, he will have a place and food until 10/25/2020. Until then, continue hydration and monitoring CPK Plan/VTE VTE Prophylaxis Ordered?: Yes Plan 1. Rhabdomyolysis -Continue to trend CPK -Continue IVF 2. COVID 19 positive -Not on supplemental oxygen -Supportive care -Isolation 3. Agitation 2/2 polysubstance abuse -This afternoon, he was compliant with me -Continue suoxone and nicotine patches -1:1 sitter 4. Hypomagnesemia -Mag Ox 5. DVT ppx -[facility] VS[facility]O Vital Signs Date Time Temp Pulse Resp B/P (MAP) Pulse Ox O2 Delivery O2 Flow Rate FiO2 10/21/20 20:00 101.1 96 22 127/64 (85) 94 Room Air Laboratory Data 24H LABS Laboratory Tests 2 10/20/20 21:44: Lactic Acid Level 0.8 10/21/20 07:07: Immature Granulocyte % (Auto) 0.4, Neutrophils (%) (Auto) 74.0H, Lymphocytes (%) (Auto) 14.8L, Monocytes (%) (Auto) 10.6H, Eosinophils (%) (Auto) 0.0, Basophils (%) (Auto) 0.2, Neutrophils # (Auto) 7.3, Lymphocytes # (Auto) 1.5, Monocytes # (Auto) 1.1H, Eosinophils # (Auto) 0.0, Basophils # (Auto) 0.0, Nucleated Red Blood Cells % (auto) 0.0, Prothrombin Time 13.4, Prothromb Time International Ratio 1.00, Activated Partial Thromboplast Time 36.5, Fibrinogen 390, D-Dimer, Quantitative 959.97H, Blood Gas Bicarbonate Standard 27.3, Venous Blood pH 7.539H, Venous Blood Partial Pressure CO2 29.8L, Venous Blood Partial Pressure O2 216.0H, Venous Blood Total Carbon Dioxide 25.8, Venous Blood HCO3 24.9, Venous Blood Oxygen Saturation 99.4H, Venous Blood Base Excess 3.1H, Phosphorus Level 2.2L, Ferritin 261, Lactate Dehydrogenase 272H, Total Creatine Kinase 2155H, Troponin I < 0.02, C-Reactive Protein, Quantitative 10.80H, RZ-Gcl-C-Type Natriuretic Peptide 148H, Triglycerides Level 46, Procalcitonin 1.08 CBC/BMP Laboratory Tests 10/21/20 07:07 Microbiology Microbiology 10/20/20 Blood Culture, Received Pending AILIN RUSSO DO Oct 21, 2020 21:07
[2020-10-22] MEDS: NS 1,000 ML IV SCH (00:22)
[2020-10-22] MEDS ORDERED: cefTRIAXone SOD 2 GM in D5W MINI-BAG PLUS 50 ML IV SCH (03:00)
[2020-10-22 04:00] VITALS: BP 114/52
[2020-10-22] MEDS ORDERED: AZITHROMYCIN INJ 500 MG, VIAL MATE ADAPTER 1 EACH in D5W 250 ML IV SCH (05:00)
[2020-10-22 07:38] LABS: HEMATOCRIT 38.6 % (42.0-52.0); HEMOGLOBIN 12.3 g/dl (13.5-17.5); MEAN CORPUSCULAR HEMOGLOBIN 28.6 pg (27.0-33.0); MEAN CORPUSCULAR HGB CONC 31.9 g/dl (32.0-36.5); MEAN CORPUSCULAR VOLUME 89.8 fl (80.0-96.0); PLATELET COUNT, AUTOMATED 131 10^3/uL (150-450); WHITE BLOOD COUNT 7.6 10^3/uL (4.0-10.0)
[2020-10-22] MEDS: LACTIC ACID 12% LOTION 225 GM BTL TOP SCH (09:00)
[2020-10-22] MEDS: CLOBETASOL PROPIONATE EMOLLIENT 0.05% CR 60 GM TOP SCH (09:00)
[2020-10-22] MEDS: risperiDONE 1 MG TAB PO SCH (09:00)
[2020-10-22] MEDS: ASPIRIN 81 MG ENTERIC TAB PO SCH (09:00)
[2020-10-22] MEDS: VENLAFAXINE **XR** 75MG CAPSULE PO SCH (09:00)
[2020-10-22] MEDS: BUPRENORPHINE/NALOXONE 2-0.5MG SUBLINGUAL TABLET(SUBOXONE) SL SCH (09:00)
[2020-10-22] MEDS: ENOXAPARIN 40MG/0.4ML SYRINGE (J1650 PER 10MG) SC SCH (09:00)
[2020-10-22] MEDS: NICOTINE 21MG/24HR 1 EA TRANSDERMAL TD SCH (09:00)
[2020-10-22 10:20] LABS: BLOOD UREA NITROGEN 8 MG/DL (7-18); CARBON DIOXIDE LEVEL 26 mmol/L (20-29); CHLORIDE LEVEL 106 MEQ/L (98-107); CREATININE FOR GFR 0.87 MG/DL (0.70-1.30); GLOMERULAR FILTRATION RATE > 60.0 (>60); GLUCOSE, FASTING 91 MG/DL (70-100); POTASSIUM SERUM 3.6 MEQ/L (3.5-5.1); SODIUM LEVEL 139 MEQ/L (136-145)
[2020-10-22 10:21] LABS: CALCIUM LEVEL 7.8 MG/DL (8.5-10.1); CPK CREATINE PHOSPHOKINASE 1158 U/L (39-308)
[2020-10-22] MEDS ORDERED: CEFD1CAP8 PO (11:22)
--- NOTE | 2020-10-22 22:52 | DS.PDOC ---
Discharge Summary General Date of Admission Oct 20, 2020 at 20:24 Date of Discharge Oct 22, 2020 Attending Physician: AILIN RUSSO DO Discharge Summary PROCEDURES PERFORMED DURING STAY: None ADMITTING DIAGNOSES: 1. Rhabdomyolysis 2. COVID 19 positive 3. Polysubstance abuse 4. Hypomagnesemia DISCHARGE DIAGNOSES: 1. Rhabdomyolysis 2. COVID 19 positive 3. Polysubstance abuse 4. Hypomagnesemia COMPLICATIONS/CHIEF COMPLAINT: Covid-19/Polysubstance Abuse/Homelessness. HISTORY OF PRESENT ILLNESS: Mr. Benjamin Owens is a 29 year old homeless male who was found by EMS lying on the ground. Most of the H&P was obtained from Dr. Briones and Dr. Vallejo as patient was sedated at the time of admission. 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 He was tested for COVID 19 and was asked to remain in quarantine until his test returned. Later that afternoon, EMS found him lying on the ground with a fever. He was brought back to the ER. In the ED, he was agitated. He was crying and telling staff that he did not want to return to the hotel where he was in quarantine. He did not think he was going to make it. There was suspicion that he mgiht be intoxicated with Lianne. He was given Haldol and Ativan for agitation. He was noted to have rhabdomyolysis and was admitted HOSPITAL COURSE: During his admission he was given IVF and his rhabdomyolysis improved. He was more calm and a sitter was no longer needed. He was anxious to go home. PFS coordinated a safe discharge plan with [facility]. Patient will have a place to stay until 10/25/2020 at [facility]. He will also be provided a food box through 10/25/2020. Today, he felt well. Denied any chest pain, dyspnea, abdominal pain, or dysuria. He was anxious to leave and was discharged with an 3 days of cefdinir to complete a 5 day course of antibiotics. He already had 3 days of azithromycin in patient. Antibiotic was sent to [facility] on [address] DISCHARGE MEDICATIONS: Please see below. ALLERGIES: Please see below. PHYSICAL EXAMINATION ON DISCHARGE: VITAL SIGNS: Please see below. GENERAL: Comfortable, in no apparent distress HEENT: EOMI, Sclera clear NECK: Supple CARDIOVASCULAR EXAMINATION: Regular rate and rhythm RESPIRATORY EXAMINATION: Lungs clear to auscultation bilaterally ABDOMINAL EXAMINATION: Soft, non-tender, normal bowel sounds EXTREMITIES: No pitting edema bilaterally SKIN: Warm and dry NEUROLOGICAL EXAMINATION: CN 3-12 grossly intact PSYCHIATRIC EXAMINATION: Normal mood and affect LABORATORY DATA: Please see below. IMAGING: CXR No active disease. PROGNOSIS: Good ACTIVITY: As tolerated. DIET: As tolerated DISCHARGE PLAN: To hotel to self quarantine DISPOSITION: Home Health Service. DISCHARGE INSTRUCTIONS: 1. Self quarantine in hotel 2. Follow up with PCP in 1 week DISCHARGE CONDITION: Stable. Total time spent in discharge planning, discharge summary, and medication reconciliation: 45 minutes Vital Signs/I&Os Vital Signs Date Time Temp Pulse Resp B/P (MAP) Pulse Ox O2 Delivery O2 Flow Rate FiO2 10/22/20 06:00 98 Room Air 10/22/20 04:00 98.7 76 18 114/52 (72) 1.0 I&O- Last 24 Hours up to 6 AM 10/22/20 06:00 Intake Total 3778 ml Output Total 2525 ml Balance 1253 ml Laboratory Data Labs 24H Laboratory Tests 2 10/22/20 03:10: 10/22/20 06:28: Nucleated Red Blood Cells % (auto) 0.0, Anion Gap 7L, Glomerular Filtration Rate > 60.0, Calcium Level 7.8L, Total Creatine Kinase 1158H CBC/BMP Laboratory Tests 10/22/20 06:28 Microbiology Microbiology 10/20/20 Blood Culture - Preliminary, Resulted No Growth after 48 hours. All Specime... Discharge Medications Scheduled Ammonium Lactate (Ammonium Lactate) 12% Lotion, 1 DOSE TOP BID, (Reported) Buprenorphine HCl/Naloxone HCl (Suboxone 2 mg-0.5 mg Sl Film) 1 Each Film, 1 MIS SL BID, (Reported) Cefdinir (Cefdinir) 300 Mg Capsule, 300 MG PO BID Clobetasol Propionate/Emoll (Clobetasol Emollient 0.05% Crm) 0.05% 15GM Cream..g., 1 APLCT TOP BID, (Reported) APPLY TO BACK Melatonin (Melatonin) 3 Mg Tablet, 3 MG PO QHS, (Reported) Nicotine (Nicotine Patch) 21 Mg Patch.td24, 21 MG TD DAILY, (Reported) Risperidone (Risperidone) 1 Mg Tablet, 1 MG PO BID, (Reported) Trazodone HCl (Trazodone HCl) 100 Mg Tablet, 100 MG PO QHS, (Reported) Venlafaxine HCl (Venlafaxine HCl ER) 75 Mg Cap.er.24h, 75 MG PO DAILY, (Reported) Scheduled PRN Benzonatate (Tessalon Perle) 100 Mg Capsule, 100 MG PO TID PRN for COUGH, (Reported) Ibuprofen (Ibuprofen) 400 Mg Tablet, 400 MG PO Q6H PRN for PAIN, (Reported) Nicotine Polacrilex (Nicotine Gum) 2 Mg Gum, 2 MG PO QID PRN for NICOTINE WITHDRAWAL, (Reported) Miscellaneous Medications [Med Rec Comment] , (Reported) MED LIST OBTAINED FROM [facility], MEDS ARE READY BUT HAVE NOT BEEN PI CKED UP YET Allergies Coded Allergies: cyclobenzaprine (Verified Allergy, Unknown, 09/07/20) AILIN RUSSO DO Oct 22, 2020 22:52
[2020-10-24 16:11] LABS: HEPATITIS B CORE ANTIBODY IGG Negative (Negative); MYCOPLASMA PNEUMONIAE IgG 242 U/mL (0-99); MYCOPLASMA PNEUMONIAE IgM 884 U/mL (0-769)
== END 2020-10-22 13:25 | disposition home health service (06) | DRG 351 ==
LOC: M ED 17:11 → EDBD 17:11 → M ED INP 20:24 → ENRESERV 10-21 04:02 → M 4MAIN 10-21 06:20
PROVIDERS: ADMIT Internal Medicine; ATTEND Internal Medicine
DX: M62.82 Rhabdomyolysis (principal); U07.1 COVID-19; E83.42 Hypomagnesemia; F19.10 Other psychoactive substance abuse, uncomplicated; Z59.0 Homelessness; Z79.899 Other long term (current) drug therapy; Z88.8 Allergy status to other drugs, medicaments and biological substances; F17.200 Nicotine dependence, unspecified, uncomplicated

== ENCOUNTER 2020-11-01 07:39 | Emergency (ER) | payer OTHER ==
[~2020-11-01] VITALS: Ht 172.7 cm; Wt 75.3 kg
[~2020-11-01 07:39] MED LIST changes: +AMMO12LO TOP; +CEFD1CAP8 PO; +CLOB0.0548 TOP; +IBUP40TA PO; +MED REC COMMENT; +MELA3TAB30 PO; +NICO1DIS12 TD; +NICO2GUM50 PO; +RISP-8 PO; +SUBO2MIS SL; +TRAZ-257 PO; +VENL75CA47 PO
[2020-11-01] MEDS ORDERED: IBUPROFEN 800 MG TAB PO ONE (09:00)
[2020-11-01 10:18] VITALS: BP 133/69
== END 2020-11-01 10:24 | disposition home or self-care (01) ==
LOC: M ED 07:39
DX: R51.9 Headache, unspecified (principal); F17.200 Nicotine dependence, unspecified, uncomplicated; B18.2 Chronic viral hepatitis C; F41.9 Anxiety disorder, unspecified; F32.89 Other specified depressive episodes; F15.10 Other stimulant abuse, uncomplicated; Z79.899 Other long term (current) drug therapy

== ENCOUNTER 2021-05-11 19:42 | Inpatient (IN) | payer MEDICAID, OTHER ==
[~2021-05-11] VITALS: Ht 172.7 cm; Wt 92.2 kg
[~2021-05-11 19:42] MED LIST changes: -DOXY100C37 PO; +DOXY1CAP62 PO; +IBUP1TAB5 PO; -IBUP40TA PO
[2021-05-11] MEDS ORDERED: BUPR1FIL SL (20:07)
[2021-05-11 22:00] LABS: HEMATOCRIT 40.6 % (42.0-52.0); HEMOGLOBIN 13.5 g/dl (13.5-17.5); MEAN CORPUSCULAR HEMOGLOBIN 29.3 pg (27.0-33.0); MEAN CORPUSCULAR HGB CONC 33.3 g/dl (32.0-36.5); MEAN CORPUSCULAR VOLUME 88.3 fl (80.0-96.0); PLATELET COUNT, AUTOMATED 227 10^3/uL (150-450); WHITE BLOOD COUNT 6.1 10^3/uL (4.0-10.0)
[2021-05-11 22:21] LABS: AMPHETAMINES LEVEL URINE NEGATIVE (NEGATIVE); BARBITURATES URINE NEGATIVE (NEGATIVE); BENZODIAZEPINES URINE NEGATIVE (NEGATIVE); CANNABINOIDS URINE NEGATIVE (NEGATIVE); COCAINE METABOLITE URINE NEGATIVE (NEGATIVE); METHADONE URINE NEGATIVE (NEGATIVE); OPIATES URINE NEGATIVE (NEGATIVE); PHENCYCLIDINE URINE NEGATIVE (NEGATIVE)
[2021-05-11 22:30] LABS: ACETAMINOPHEN LEVEL < 2.0 UG/ML (10.0-30.0); ALBUMIN 3.6 GM/DL (3.2-5.2); ALT/SGPT 59 U/L (12-78); BILIRUBIN,DIRECT < 0.1 MG/DL (0.0-0.2); BILIRUBIN,TOTAL 0.3 MG/DL (0.2-1.0); BLOOD UREA NITROGEN 23 MG/DL (7-18); CALCIUM LEVEL 8.9 MG/DL (8.5-10.1); CARBON DIOXIDE LEVEL 29 MEQ/L (21-32); CHLORIDE LEVEL 106 MEQ/L (98-107); CREATININE FOR GFR 0.83 MG/DL (0.70-1.30); ETHYL ALCOHOL (ETHANOL) < 0.003 % (0.000-0.010); GLOMERULAR FILTRATION RATE > 60.0 (>60); GLUCOSE, FASTING 102 MG/DL (70-100); POTASSIUM SERUM 4.2 MEQ/L (3.5-5.1); SALICYLATE LEVEL 3.2 MG/DL (5.0-30.0); SODIUM LEVEL 141 MEQ/L (136-145); TOTAL PROTEIN 7.2 GM/DL (6.4-8.2)
[2021-05-12] MEDS: BUPRENORPHINE/NALOXONE 8-2MG SUBLINGUAL TABLET(SUBOXONE) SL SCH (08:47)
[2021-05-12] MEDS: NICOTINE POLACRILEX 2 MG GUM PO PRN ×2 (11:24→20:29)
[2021-05-12] MEDS ORDERED: LORazepam 2 MG TAB PO STA (12:05)
[2021-05-12 13:09] LABS: RSV AMPLIFICATION NEGATIVE (NEGATIVE)
[2021-05-12] MEDS ORDERED: MAALOX 30 ML SUSP *UDC PO PRN (17:00)
[2021-05-12] MEDS ORDERED: ACETAMINOPHEN TAB 650MG DOSE (2X325MG) PO PRN (17:00)
[2021-05-12] MEDS ORDERED: traZODone 50 MG TAB PO PRN (17:00)
[2021-05-12] MEDS ORDERED: MOM 30ML SUSPENSION UDC PO PRN (17:00)
[2021-05-12 18:44] VITALS: BP 137/71
[2021-05-12] MEDS ORDERED: LORazepam 1 MG TAB PO PRN (23:05)
[2021-05-13 05:53] VITALS: BP 119/66
[2021-05-13] MEDS: NICOTINE POLACRILEX 2 MG GUM PO PRN ×4 (06:07→20:37)
[2021-05-13] MEDS: BUPRENORPHINE/NALOXONE 8-2MG SUBLINGUAL TABLET(SUBOXONE) SL SCH (08:52)
[2021-05-13] MEDS ORDERED: NICOTINE 21MG/24HR 1 EA TRANSDERMAL TD SCH (09:00)
--- NOTE | 2021-05-13 09:49 | MHHPEPDOC ---
General Date Of Admission: May 12, 2021 Legal Status: 9.39 Chief Complaint I was tired of life and I just wanted to ]. History of Present Illness HISTORY OF THE PRESENT ILLNESS: Patient is a 30 -year-old , male, who [has a long history of opiate dependence but no previous inpatient psychiatric treatment. Patient came to the emergency room reporting increasing depression and strong suicidal thoughts for the past month. He stated that he has been in treatment for his drug dependence is currently taking Suboxone but has been using heroin on and off and has been homeless for the past 2 years. He reported that he is tired of living a life like this and was going to end his life and took an overdose of the heroin about 2 weeks ago but did not tell anybody about his suicidal intent 1 was not admitted. He stated that he is having more suicidal thoughts and was making detailed plans of overdosing on heroin again but instead came to the emergency room seeking help. He denies any psychotic symptoms denies any clear precipitant but stated that he is tired of his life wants help instead of dying and failure to that he can use another inpatient rehabilitation treatment. He claims that he had 2 previous rehab treatment but the last one was several years ago and feels that he needs inpatient treatment now. He is denying any psychotic symptoms denies any history of skye and denies any command hallucination and is willing to contract for safety.]. Psychiatric Review of Systems Depression (2 or more weeks): depressed mood, feelings of worthlesness, decreased energy, suicidal thoughts Skye (4 or more days of): denies Psychosis: denies PTSD: denies Anxiety: situational anxiety, stressor related anxiety Past Psychiatric History Previous Psychiatric Diagnosis: . No previous psychiatric treatment later claims that he might have been admitted in 2019 Previous Psychiatric Admissions: . Inpatient rehab admission twice and possible psychiatric admission in 2019 Suicide Attempts: . Claims that he attempted suicide by heroin overdose on May 02 Psychiatric Follow-up: Attending addictions outpatient treatment in [place]]. Psychiatric medications: . Taking Suboxone Past Medical History Medical Problems Has a history of hep C no current treatment Head Injury: No Seizures: No Hospitalizations: No Surgeries: No Family Medical/Psychiatric HX Medical Problems Noncontributory Psychiatric Disorders: No Addiction: No Suicide Attemps/Completions: No (Parents are denies any psychiatric history) Addiction History opioids, heroin Social History Childhood: . Born in [place] uneventful childhood Abuse/Trauma:. Denies any history of abuse Current Living Situation: . Been homeless for 2 years Education: . High school Employment: . Unemployed Social Support: . No support system Legal: . Patient denies any legal history Marital: . Never Mental Status Examination General Appearance: disheveled, appears stated age Build: average Demeanor: average Eye Contact: average Activity: average Behavior: cooperative Speech: clear, spontaneous, normal volume Mood: depressed Mood Feeling hopeless and worthless and is tired of living life Thought Process: logical/linear Thought Content (Delusions): none reported Thought Content (Other): none reported Thought Content (Aggressive): none reported Perception (Hallucinations): none reported Perception (Other): none reported Cognition (Impairment of): none reported Cognition(Intelligence Est.): average Oriented: Awake, Alert, Oriented times three Insight: fair Judgment: Fair Psychosis: Denies Diagnoses Depressive disorder NOS opiate dependence A-FIB/CHADSVASC A-FIB History Current/History of A-Fib/PAF?: No Current PO Anticoag Therapy: No Age/Risk Factor Scoring CHADSVASC: CHADSVASC Response (Comments) Value Gender Risk Factor Male 0 Hx of CHF No 0 Hx of HTN No 0 Hx of Stroke/TIA/or VTE No 0 Hx of Diabetes No 0 Hx of Vascular Disease No 0 Total 0 Treatment Treatment ordered: NONE Assessment Moderately depressed primarily over his continue to drug use and being homeless. He reports recent suicidal attempt but is able to contract for safety and is asking for inpatient rehab treatment Initial Treatment Plan 1. Patient was admitted on a 9.39 status. 2. Complete history was obtained. 3. With patients permission, family will be contacted and database will be expanded. 4. Patients medication regimen will be reviewed and changed accordingly. 5. Patient will be provided with protected environment. 6. Patient will be treated with individual, group, and milieu therapies. 7. Patient will receive supportive psych-education. 8. Discharge planning will commence immediately. 9. Outpatient follow-up treatment will be strongly recommended. 10. The initial treatment plan will focus initially on: * Depression. * Risk for suicide. ESTIMATED LENGTH OF STAY: 3-5 DAYS. TIME SPENT COUNSELING AND COORDINATING INITIAL CARE: 40 minutes. Tobacco Cessation Screen If Patient is a Smoker Yes Tobacco Cessation Tx Ordered?: Yes N/A-No Antipsychotics Vital Signs Vital Signs Date Time Temp Pulse Resp B/P (MAP) Pulse Ox O2 Delivery O2 Flow Rate FiO2 05/13/21 05:53 98.0 72 18 119/66 (83) 95 Room Air Laboratory Data 24H Labs Laboratory Tests 2 05/12/21 12:13: Coronavirus (COVID-19)(PCR) NEGATIVE, Influenza Type A (RT-PCR) NEGATIVE, In fluenza Type B (RT-PCR) NEGATIVE, Respiratory Syncytial Virus (PCR) NEGATIVE Medications Scheduled Buprenorphine HCl/Naloxone HCl (Buprenorphine-Nalox 8-2Mg Film) 8 Mg-2 Mg Film, 1 DOSE SL DAILY, (Reported) Allergies Coded Allergies: cyclobenzaprine (Verified Allergy, Unknown, 09/07/20) HERNANDO HALL M.D. May 13, 2021 09:49
[2021-05-13] MEDS: hydrOXYzine 50 MG TAB PO PRN (10:13)
[2021-05-13] MEDS ORDERED: NICOTINE POLACRILEX 2 MG GUM PO PRN ×2 (10:15→14:00)
--- NOTE | 2021-05-13 10:57 | HPEPDOC ---
[facility] Medical History & Physical Date of Admission May 12, 2021 Date of Service: May 13, 2021 History and Physical CHIEF COMPLAINT: Routine medical exam HISTORY OF PRESENT ILLNESS: 30-year-old male with history of hepatitis C anxiety coronavirus 19 in October 2020 situational anxiety disorder, depression, recreational drug use active smoker 2 packs a day admitted to the inpatient mental health unit for depression and recreational drug use. Patient complains of right thigh well-healed scab without fever chills erythema tenderness or edema from injecting recreational drugs. Patient denies any fever chills nausea vomiting diarrhea abdominal pain chest pain pressure tightness shortness of breath palpitations lightheadedness dizziness dysuria urgency frequency flank pain polyphagia polydipsia changes in bowel habits, sleep, appetite, weight gain or weight loss, rhinorrhea sore throat tinnitus changes in vision. PAST MEDICAL HISTORY: Hepatitis C depression coronavirus 19 situational anxiety PAST SURGICAL HISTORY: None SOCIAL HISTORY: Polysubstance abuse active tobacco abuse 2 packs a day since he was a teenager on chronic Suboxone homeless previously worked at [email or web address] FAMILY HISTORY: CAD CABG ALLERGIES: Please see below. REVIEW OF SYSTEMS: 10 point review of systems negative aside from positive findings in HPI HOME MEDICATIONS: Please see below. PHYSICAL EXAMINATION: VITAL SIGNS: See below GENERAL APPEARANCE: Pressured speech cooperative but appears agitated HEENT: No JVD thyromegaly moist mucous membranes CARDIOVASCULAR: S1-S2 sinus rhythm LUNGS: Air entry is equal bilaterally no adventitious breath sounds clear to auscultation bilaterally ABDOMEN: Obese positive bowel sounds soft nontender nondistended no rebound guarding no hepatosplenomegaly no abdominal bruit EXTREMITIES: Right thigh 1 cm well-healed scabbed lesion on the anterior thigh no erythema induration edema or signs of cellulitis. No peripheral edema bilateral lower extremities LABORATORY DATA: See below. ASSESSMENT: 30-year-old male with history of hepatitis C anxiety coronavirus 19 in October 2020 situational anxiety disorder, depression, recreational drug use active smoker 2 packs a day admitted to the inpatient mental health unit for depression and recreational drug use. Patient complains of right thigh well-healed scab without fever chills erythema tenderness or edema from injecting recreational drugs. Patient denies any fever chills nausea vomiting diarrhea abdominal pain chest pain pressure tightness shortness of breath palpitations lightheadedness dizziness dysuria urgency frequency flank pain polyphagia polydipsia changes in bowel habits, sleep, appetite, weight gain or weight loss, rhinorrhea sore throat tinnitus changes in vision. Depression and situational anxiety disorder History of recreational drug abuse Active tobacco abuse Well-healed right anterior thigh scab Plan: Patient does not have any active cellulitis or purulent drainage in the right anterior thigh wound he does not require any oral antibiotics but may benefit from topical triple antibiotic twice a day for 5 days. Patient has no systemic symptoms of sepsis and is stable to remain in the inpatient mental health unit without any oral antibiotics. Tobacco cessation counseling nicotine gum and patch have been now given primary team for depression and anxiety disorder. HOSPITALIST SERVICE WILL SIGN OFF THERE ARE NO ACUTE MEDICAL ISSUES. PLEASE CALL [facility] AT [phone] IF PATIENT DEVELOPS NEW ACUTE MEDICAL ISSUES FOR A NEW MEDICAL CONSULTATION. Vital Signs Vital Signs Date Time Temp Pulse Resp B/P (MAP) Pulse Ox O2 Delivery O2 Flow Rate FiO2 05/13/21 05:53 98.0 72 18 119/66 (83) 95 Room Air Laboratory Data Labs 24H Laboratory Tests 2 05/12/21 12:13: Coronavirus (COVID-19)(PCR) NEGATIVE, Influenza Type A (RT-PCR) NEGATIVE, Influenza Type B (RT-PCR) NEGATIVE, Respiratory Syncytial Virus (PCR) NEGATIVE Home Medications Scheduled Buprenorphine HCl/Naloxone HCl (Buprenorphine-Nalox 8-2Mg Film) 8 Mg-2 Mg Film, 1 DOSE SL DAILY Allergies Coded Allergies: cyclobenzaprine (Verified Allergy, Unknown, 09/07/20) A-FIB/CHADSVASC A-FIB History Current/History of A-Fib/PAF?: No Current PO Anticoag Therapy: No Age/Risk Factor Scoring CHADSVASC: CHADSVASC Response (Comments) Value Age Risk Factor Age < 65 years old 0 Gender Risk Factor Male 0 Hx of CHF No 0 Hx of HTN No 0 Hx of Stroke/TIA/or VTE No 0 Hx of Diabetes No 0 Hx of Vascular Disease No 0 Total 0 Treatment Treatment ordered: NONE FLACO HERNANDEZ MD May 13, 2021 10:57
[2021-05-13] MEDS ORDERED: NICOTINE POLACRILEX 2 MG GUM PO ONE (11:00)
[2021-05-13] MEDS: buPROPion (WELLBUTRIN SR) 100 MG SR TAB PO SCH ×2 (12:29→20:37)
[2021-05-13] MEDS: NEOSPORIN TOP OINT 15GM TOP SCH ×2 (12:30→20:37)
[2021-05-13] MEDS: OLANZapine ORAL DISINTEGRATING TAB 5MG PO PRN (14:30)
[2021-05-13 16:08] VITALS: BP 157/83
[2021-05-13] MEDS: traZODone 100 MG TAB PO SCH (20:37)
[2021-05-14] MEDS ORDERED: UNRESOLVED CLARIFICATION ENTRY XX SCH (00:01)
[2021-05-14 05:34] VITALS: BP 129/74
[2021-05-14] MEDS: NICOTINE POLACRILEX 2 MG GUM PO PRN ×4 (06:31→20:07)
[2021-05-14] MEDS: buPROPion (WELLBUTRIN SR) 100 MG SR TAB PO SCH ×2 (08:07→20:08)
[2021-05-14] MEDS: BUPRENORPHINE/NALOXONE 8-2MG SUBLINGUAL TABLET(SUBOXONE) SL SCH (08:07)
[2021-05-14] MEDS: NEOSPORIN TOP OINT 15GM TOP SCH ×2 (08:09→20:08)
--- NOTE | 2021-05-14 08:13 | MHIPNPDOC ---
[facility] Progress Note Progress Note DATE OF SERVICE: 05/14/21 Patient complains of increasing anxiety and was given Zydis 5 mg as needed with good relief. He states that he is still very anxious because he is so unsure of his future and especially with his continued relapse and being homeless. Patient claims that he is fully motivated and determined to get into an inpatient rehab and is asking for referral. He is denying any active suicidal plan or intent and wants help. HISTORY:. VITAL SIGNS: See below. NEW TEST RESULTS:. CURRENT MEDICATIONS: See below. MENTAL STATUS EXAMINATION: Patient is a 30-year old male, who is moderately anxious but in good control. Speech: Is rational and coherent. Language skills are good. Thought processes including: Organized coherent. Thought content: Denies any paranoia. Abstract reasoning, and computation: Fair. Description of associations: Organized. Description of abnormal or psychotic thoughts: Denies any. Judgment: Fair. Insight: Fair.. Orientation: Oriented. Recent and remote memory: Unimpaired. Attention span and concentration:. Language:. Fund of knowledge:. Mood: Moderately anxious and depressed. Affect: Appropriate blunted. DIAGNOSES: 1.. Depressive disorder NOS 2.. Opiate dependence 3.. ASSESSMENT: Continue with the current medicine he remains moderately anxious and depressed MANAGEMENT PLAN: We will refer him to drug inpatient rehab. TIME SPENT: 15 minutes. Vital Signs Vital Signs Date Time Temp Pulse Resp B/P (MAP) Pulse Ox O2 Delivery O2 Flow Rate FiO2 05/14/21 05:34 97.5 73 18 129/74 (92) 95 Room Air Current Medications Current Medications Medications (Trade) Dose Ordered Sig/Flora Route PRN Reason Start Time Stop Time Status Last Admin Dose Admin Acetaminophen (Tylenol Tab) 650 mg Q6HP PRN PO HEADACHE or MILD DISCOMFORT 05/12/21 17:00 Al Hydrox/Mg Hydrox/Simethicone (Mylanta) 30 ml Q4HP PRN PO HEARTBURN/INDIGESTION 05/12/21 17:00 Buprenorphine/ Naloxone (Suboxone 8/2mg) 1 tab DAILY SL 05/14/21 09:00 05/14/21 08:07 Buprenorphine/ Naloxone (Suboxone 8/2mg) 1 tab DAILY SL 05/12/21 09:00 05/13/21 10:58 DC 05/13/21 08:52 Bupropion HCl (Wellbutrin Sr) 100 mg BID PO 05/13/21 09:00 05/14/21 08:07 Home Med (Med Rec Complete!) ASDIRECTED XX 05/12/21 08:30 05/12/21 08:34 DC Hydroxyzine HCl (Atarax) 50 mg Q6HP PRN PO anxiety 05/13/21 09:35 05/13/21 10:13 Lorazepam (Ativan) 1 mg Q6HP PRN PO ANXIETY/AGITATION 05/12/21 23:05 05/13/21 09:37 DC 05/12/21 23:35 Lorazepam (Ativan) 2 mg STAT STAT PO 05/12/21 12:05 05/12/21 12:06 DC 05/12/21 12:12 Magnesium Hydroxide (Milk Of Magnesia) 30 ml DAILYPRN PRN PO CONSTIPATION 05/12/21 17:00 05/13/21 09:53 Miscellaneous (Unresolved Clarification Entry) SEE LABEL COMMENTS UNRESOLVED XX 05/14/21 00:01 05/13/21 11:15 DC Neomycin/ Polymyxin/ Bacitracin (Neosporin) open lesions on ri... BID TOP 05/13/21 09:00 05/17/21 21:01 05/14/21 08:09 Nicotine (Nicoderm Cq 21mg) 1 patch DAILY TD 05/13/21 09:00 05/13/21 10:14 DC Nicotine (Nicorette) 2 mg Q4HP PRN PO NICOTINE WITHDRAWAL 05/13/21 10:15 05/13/21 11:11 DC Nicotine (Nicorette) 4 mg Q2HP PRN PO SMOKING CESSATION 05/12/21 10:45 05/13/21 10:58 DC 05/13/21 08:52 Nicotine (Nicorette) 4 mg Q4HP PRN PO NICOTINE WITHDRAWAL 05/13/21 14:00 05/13/21 11:16 DC Nicotine (Nicorette) 4 mg Q4HP PRN PO NICOTINE WITHDRAWAL 05/13/21 15:00 05/14/21 06:31 Olanzapine (ZyPREXA ZYDIS) 5 mg Q6HP PRN PO ANXIETY/AGITATION 05/13/21 14:25 05/13/21 14:30 Trazodone HCl (Desyrel) 50 mg QHSP PRN PO INSOMNIA 05/12/21 17:00 05/13/21 09:37 DC 05/12/21 20:29 Trazodone HCl (Desyrel) 100 mg QHS PO 05/13/21 21:00 05/13/21 20:37 Allergies Coded Allergies: cyclobenzaprine (Verified Allergy, Unknown, 09/07/20) HERNANDO HALL M.D. May 14, 2021 08:13
[2021-05-14] MEDS: OLANZapine ORAL DISINTEGRATING TAB 5MG PO PRN ×2 (11:25→20:08)
[2021-05-14 18:34] VITALS: BP 137/78
[2021-05-14] MEDS: traZODone 100 MG TAB PO SCH (20:08)
[2021-05-15 06:08] VITALS: BP 123/80
[2021-05-15] MEDS: NICOTINE POLACRILEX 2 MG GUM PO PRN ×6 (07:21→23:47)
[2021-05-15] MEDS: buPROPion (WELLBUTRIN SR) 100 MG SR TAB PO SCH (08:04)
[2021-05-15] MEDS: BUPRENORPHINE/NALOXONE 8-2MG SUBLINGUAL TABLET(SUBOXONE) SL SCH (08:04)
[2021-05-15] MEDS: NEOSPORIN TOP OINT 15GM TOP SCH ×2 (08:05→19:56)
[2021-05-15] MEDS: OLANZapine ORAL DISINTEGRATING TAB 5MG PO PRN (11:43)
--- NOTE | 2021-05-15 14:40 | MHIPNPDOC ---
[facility] Progress Note Progress Note DATE OF SERVICE: 05/15/21 HISTORY: Patient is a 30 -year-old Single, Unemployed, , male, who [has a long history of opiate dependence but no previous inpatient psychiatric shannon atment. Patient came to the emergency room reporting increasing depression and strong suicidal thoughts for the past month. He stated that he has been in treatment for his drug dependence is currently taking Suboxone but has been using heroin on and off and has been homeless for the past 2 years. He reported that he is tired of living a life like this and was going to end his life and took an overdose of the heroin about 2 weeks ago but did not tell anybody about his suicidal intent 1 was not admitted. He stated that he is having more suicidal thoughts and was making detailed plans of overdosing on heroin again but instead came to the emergency room seeking help. He denies any psychotic symptoms denies any clear precipitant but stated that he is tired of his life wants help instead of dying and failure to that he can use another inpatient rehabilitation treatment. He claims that he had 2 previous rehab treatment but the last one was several years ago and feels that he needs inpatient treatment now. He is denying any psychotic symptoms denies any history of andrade and denies any command hallucination and is willing to contract for safety. He reports that he came to [place] for his cousin who "lied" to him. He now is homeless and reports no current work history, last employment was in 2005. States that he wants to apply for disability. Last history of Rehab was last year at [facility]. VITAL SIGNS: See below. CURRENT MEDICATIONS: See below. MENTAL STATUS EXAMINATION: Patient is a -year old male, who is . Speech: Is fluid, conversant, normal rate, tone and volume Language skills are intact Thought processes including: linear and goal oriented Thought content: reporting decreased depression and anxiety. Denies current suicidal/homicidal ideation, planning or intent. Abstract reasoning, and computation: fair Description of associations: denies, none observed Description of abnormal or psychotic thoughts: denies, none observed. Judgment: fair Insight: fair Orientation: alert and oriented to person, place, time and situation Recent and remote memory: intact Attention span and concentration: good Language: expansive Fund of knowledge: average Mood: Depressed Mood Affect: Constricted DIAGNOSES: 1. Unspecified Depressive Disorder 2. Opiate Use Disorder 3. Stimulant Use Disorder 4. rule out Opiate Induced Depressive Disorder ASSESSMENT: Patient is reporting moderate depression and anxiety. No current suicidality. Reports that Wellbutrin makes him tremulous he is requesting Celexa. Also he is hopeful for a bed in substance abuse treatment facility for his substance dependence. Complains of abdominal pain. Reports that he has never received Hep c treatment or medications. Reports that he was diagnosed a couple of years ago in an ED visit. MANAGEMENT PLAN: Continue all medications, patient complains of Wellbutrin making his hands tremulous and states that he has been on Celexa in the past and prefers this TIME SPENT: 25 minutes. Vital Signs Vital Signs Date Time Temp Pulse Resp B/P (MAP) Pulse Ox O2 Delivery O2 Flow Rate FiO2 05/15/21 06:08 98.1 62 18 123/80 (94) 99 Room Air Current Medications Current Medications Medications (Trade) Dose Ordered Sig/Flora Route PRN Reason Start Time Stop Time Status Last Admin Dose Admin Acetaminophen (Tylenol Tab) 650 mg Q6HP PRN PO HEADACHE or MILD DISCOMFORT 05/12/21 17:00 Al Hydrox/Mg Hydrox/Simethicone (Mylanta) 30 ml Q4HP PRN PO HEARTBURN/INDIGESTION 05/12/21 17:00 Buprenorphine/ Naloxone (Suboxone 8/2mg) 1 tab DAILY SL 05/14/21 09:00 05/15/21 08:04 Buprenorphine/ Naloxone (Suboxone 8/2mg) 1 tab DAILY SL 05/12/21 09:00 05/13/21 10:58 DC 05/13/21 08:52 Bupropion HCl (Wellbutrin Sr) 100 mg BID PO 05/13/21 09:00 05/15/21 13:44 DC 05/15/21 08:04 Bupropion HCl (Wellbutrin Sr) 100 mg DAILY PO 05/16/21 09:00 Home Med (Med Rec Complete!) ASDIRECTED XX 05/12/21 08:30 05/12/21 08:34 DC Hydroxyzine HCl (Atarax) 50 mg Q6HP PRN PO anxiety 05/13/21 09:35 05/13/21 10:13 Lorazepam (Ativan) 1 mg Q6HP PRN PO ANXIETY/AGITATION 05/12/21 23:05 05/13/21 09:37 DC 05/12/21 23:35 Lorazepam (Ativan) 2 mg STAT STAT PO 05/12/21 12:05 05/12/21 12:06 DC 05/12/21 12:12 Magnesium Hydroxide (Milk Of Magnesia) 30 ml DAILYPRN PRN PO CONSTIPATION 05/12/21 17:00 05/13/21 09:53 Miscellaneous (Unresolved Clarification Entry) SEE LABEL COMMENTS UNRESOLVED XX 05/14/21 00:01 05/13/21 11:15 DC Neomycin/ Polymyxin/ Bacitracin (Neosporin) open lesions on ri... BID TOP 05/13/21 09:00 05/17/21 21:01 05/14/21 20:08 Nicotine (Nicoderm Cq 21mg) 1 patch DAILY TD 05/13/21 09:00 05/13/21 10:14 DC Nicotine (Nicorette) 2 mg Q4HP PRN PO NICOTINE WITHDRAWAL 05/13/21 10:15 05/13/21 11:11 DC Nicotine (Nicorette) 4 mg Q2HP PRN PO SMOKING CESSATION 05/12/21 10:45 05/13/21 10:58 DC 05/13/21 08:52 Nicotine (Nicorette) 4 mg Q4HP PRN PO NICOTINE WITHDRAWAL 05/13/21 14:00 05/13/21 11:16 DC Nicotine (Nicorette) 4 mg Q4HP PRN PO NICOTINE WITHDRAWAL 05/13/21 15:00 05/15/21 13:47 Olanzapine (ZyPREXA ZYDIS) 5 mg Q6HP PRN PO ANXIETY/AGITATION 05/13/21 14:25 05/15/21 11:43 Trazodone HCl (Desyrel) 50 mg QHSP PRN PO INSOMNIA 05/12/21 17:00 05/13/21 09:37 DC 05/12/21 20:29 Trazodone HCl (Desyrel) 100 mg QHS PO 05/13/21 21:00 05/14/21 20:08 Allergies Coded Allergies: cyclobenzaprine (Verified Allergy, Unknown, 09/07/20) OK MCGARRY [employer] PRINC[employer]AL May 15, 2021 14:29
[2021-05-15 17:06] VITALS: BP 106/55
[2021-05-15] MEDS: traZODone 100 MG TAB PO SCH (19:55)
[2021-05-15] MEDS: hydrOXYzine 50 MG TAB PO PRN (23:47)
[2021-05-16 06:40] VITALS: BP 117/79
[2021-05-16] MEDS: NICOTINE POLACRILEX 2 MG GUM PO PRN ×3 (06:55→18:51)
[2021-05-16] MEDS: buPROPion (WELLBUTRIN SR) 100 MG SR TAB PO SCH (08:03)
[2021-05-16] MEDS: BUPRENORPHINE/NALOXONE 8-2MG SUBLINGUAL TABLET(SUBOXONE) SL SCH (08:03)
[2021-05-16] MEDS: NEOSPORIN TOP OINT 15GM TOP SCH ×2 (09:12→20:02)
[2021-05-16] MEDS: OLANZapine ORAL DISINTEGRATING TAB 5MG PO PRN (09:19)
[2021-05-16] MEDS ORDERED: PILL CUTTER 1 EACH XX PRN (11:55)
--- NOTE | 2021-05-16 11:58 | MHIPNPDOC ---
[facility] Progress Note Progress Note DATE OF SERVICE: 05/16/21 HISTORY: Patient is a 30 -year-old Single, Unemployed, , male, who [has a long history of opiate dependence but no previous inpatient psychiatric shannon atment. Patient came to the emergency room reporting increasing depression and strong suicidal thoughts for the past month. He stated that he has been in treatment for his drug dependence is currently taking Suboxone but has been using heroin on and off and has been homeless for the past 2 years. He reported that he is tired of living a life like this and was going to end his life and took an overdose of the heroin about 2 weeks ago but did not tell anybody about his suicidal intent 1 was not admitted. He stated that he is having more suicidal thoughts and was making detailed plans of overdosing on heroin again but instead came to the emergency room seeking help. He denies any psychotic symptoms denies any clear precipitant but stated that he is tired of his life wants help instead of dying and failure to that he can use another inpatient rehabilitation treatment. He claims that he had 2 previous rehab treatment but the last one was several years ago and feels that he needs inpatient treatment now. He is denying any psychotic symptoms denies any history of andrade and denies any command hallucination and is willing to contract for safety. He reports that he came to [place] for his cousin who "lied" to him. He now is homeless and reports no current work history, last employment was in 2005. States that he wants to apply for disability. Last history of Rehab was last year at [facility]. VITAL SIGNS: See below. CURRENT MEDICATIONS: See below. MENTAL STATUS EXAMINATION: Patient is a -year old male, who is . Speech: Is fluid, conversant, normal rate, tone and volume Language skills are intact Thought processes including: linear and goal oriented Thought content: reporting decreased depression and anxiety. Denies current suicidal/homicidal ideation, planning or intent. Abstract reasoning, and computation: fair Description of associations: denies, none observed Description of abnormal or psychotic thoughts: denies, none observed. Judgment: fair Insight: fair Orientation: alert and oriented to person, place, time and situation Recent and remote memory: intact Attention span and concentration: good Language: expansive Fund of knowledge: average Mood: Depressed Mood Affect: Constricted DIAGNOSES: 1. Unspecified Depressive Disorder 2. Opiate Use Disorder 3. Stimulant Use Disorder 4. rule out Opiate Induced Depressive Disorder ASSESSMENT: Patient is reporting mildly less depression and anxiety. No current suicidality. States that he has spoken to two Rehab Treatment facilities. He is hopeful that he will be able find a rehab bed today. Continues to complain of Wellbutrin, explained to patient that he is already being titrated off Wellbutrin (he was on 100 mg twice daily and now on 100 mg daily) He is sera ative on the unit, attending groups although in one session he was observed restless and disengaged in the group. He has a brighter affect today but reports that he had poor sleep. States Trazodone was not effective. Seroquel 100 mg started for HS tonight. MANAGEMENT PLAN: Continue all medications, patient complains of Wellbutrin making his hands tremulous and states that he has been on Celexa in the past and prefers this TIME SPENT: 25 minutes. Vital Signs Vital Signs Date Time Temp Pulse Resp B/P (MAP) Pulse Ox O2 Delivery O2 Flow Rate FiO2 05/16/21 06:40 97.8 75 16 117/79 (92) 98 Room Air Current Medications Current Medications Medications (Trade) Dose Ordered Sig/Flora Route PRN Reason Start Time Stop Time Status Last Admin Dose Admin Acetaminophen (Tylenol Tab) 650 mg Q6HP PRN PO HEADACHE or MILD DISCOMFORT 05/12/21 17:00 Al Hydrox/Mg Hydrox/Simethicone (Mylanta) 30 ml Q4HP PRN PO HEARTBURN/INDIGESTION 05/12/21 17:00 Buprenorphine/ Naloxone (Suboxone 8/2mg) 1 tab DAILY SL 05/14/21 09:00 05/16/21 08:03 Buprenorphine/ Naloxone (Suboxone 8/2mg) 1 tab DAILY SL 05/12/21 09:00 05/13/21 10:58 DC 05/13/21 08:52 Bupropion HCl (Wellbutrin Sr) 100 mg BID PO 05/13/21 09:00 05/15/21 13:44 DC 05/15/21 08:04 Bupropion HCl (Wellbutrin Sr) 100 mg DAILY PO 05/16/21 09:00 05/16/21 08:03 Home Med (Med Rec Complete!) ASDIRECTED XX 05/12/21 08:30 05/12/21 08:34 DC Hydroxyzine HCl (Atarax) 50 mg Q6HP PRN PO anxiety 05/13/21 09:35 05/15/21 23:47 Lorazepam (Ativan) 1 mg Q6HP PRN PO ANXIETY/AGITATION 05/12/21 23:05 05/13/21 09:37 DC 05/12/21 23:35 Lorazepam (Ativan) 2 mg STAT STAT PO 05/12/21 12:05 05/12/21 12:06 DC 05/12/21 12:12 Magnesium Hydroxide (Milk Of Magnesia) 30 ml DAILYPRN PRN PO CONSTIPATION 05/12/21 17:00 05/13/21 09:53 Miscellaneous (Unresolved Clarification Entry) SEE LABEL COMMENTS UNRESOLVED XX 05/14/21 00:01 05/13/21 11:15 DC Neomycin/ Polymyxin/ Bacitracin (Neosporin) open lesions on ri... BID TOP 05/13/21 09:00 05/17/21 21:01 05/16/21 09:12 Nicotine (Nicoderm Cq 21mg) 1 patch DAILY TD 05/13/21 09:00 05/13/21 10:14 DC Nicotine (Nicorette) 2 mg Q4HP PRN PO NICOTINE WITHDRAWAL 05/13/21 10:15 05/13/21 11:11 DC Nicotine (Nicorette) 4 mg Q2HP PRN PO SMOKING CESSATION 05/12/21 10:45 05/13/21 10:58 DC 05/13/21 08:52 Nicotine (Nicorette) 4 mg Q4HP PRN PO NICOTINE WITHDRAWAL 05/13/21 14:00 05/13/21 11:16 DC Nicotine (Nicorette) 4 mg Q4HP PRN PO NICOTINE WITHDRAWAL 05/13/21 15:00 05/16/21 10:08 Olanzapine (ZyPREXA ZYDIS) 5 mg Q6HP PRN PO ANXIETY/AGITATION 05/13/21 14:25 05/16/21 09:19 Quetiapine Fumarate (SEROquel) 100 mg QHS PO 05/16/21 21:00 Trazodone HCl (Desyrel) 50 mg QHSP PRN PO INSOMNIA 05/12/21 17:00 05/13/21 09:37 DC 05/12/21 20:29 Trazodone HCl (Desyrel) 100 mg QHS PO 05/13/21 21:00 05/16/21 09:56 DC 05/15/21 19:55 Allergies Coded Allergies: cyclobenzaprine (Verified Allergy, Unknown, 09/07/20) OK MCGARRY NP May 16, 2021 11:58
[2021-05-16] MEDS: CitaloPRAM (CeleXA) 10 MG TABLET PO SCH (13:00)
[2021-05-16 17:04] VITALS: BP 105/62
[2021-05-16] MEDS: QUEtiapine FUMARATE 100 MG TAB PO SCH (20:01)
[2021-05-17] MEDS: NICOTINE POLACRILEX 2 MG GUM PO PRN ×4 (05:39→20:02)
[2021-05-17 06:19] VITALS: BP 158/60
[2021-05-17] MEDS: NEOSPORIN TOP OINT 15GM TOP SCH ×2 (08:04→20:02)
[2021-05-17] MEDS: buPROPion (WELLBUTRIN SR) 100 MG SR TAB PO SCH (08:05)
[2021-05-17] MEDS: CitaloPRAM (CeleXA) 10 MG TABLET PO SCH (08:06)
[2021-05-17] MEDS: BUPRENORPHINE/NALOXONE 8-2MG SUBLINGUAL TABLET(SUBOXONE) SL SCH (08:22)
--- NOTE | 2021-05-17 11:12 | MHIPNPDOC ---
[facility] Progress Note Progress Note DATE OF SERVICE: 05/17/21 HISTORY: Patient is a 30 -year-old Single, Unemployed, , male, who [has a long history of opiate dependence but no previous inpatient psychiatric shannon atment. Patient came to the emergency room reporting increasing depression and strong suicidal thoughts for the past month. He stated that he has been in treatment for his drug dependence is currently taking Suboxone but has been using heroin on and off and has been homeless for the past 2 years. He reported that he is tired of living a life like this and was going to end his life and took an overdose of the heroin about 2 weeks ago but did not tell anybody about his suicidal intent 1 was not admitted. He stated that he is having more suicidal thoughts and was making detailed plans of overdosing on heroin again but instead came to the emergency room seeking help. He denies any psychotic symptoms denies any clear precipitant but stated that he is tired of his life wants help instead of dying and failure to that he can use another inpatient rehabilitation treatment. He claims that he had 2 previous rehab treatment but the last one was several years ago and feels that he needs inpatient treatment now. He is denying any psychotic symptoms denies any history of andrade and denies any command hallucination and is willing to contract for safety. He reports that he came to [place] for his cousin who "lied" to him. He now is homeless and reports no current work history, last employment was in 2005. States that he wants to apply for disability. Last history of Rehab was last year at [facility]. VITAL SIGNS: See below. CURRENT MEDICATIONS: See below. MENTAL STATUS EXAMINATION: Patient is a 30 -year-old Single, Unemployed, , male, who [has a long history of opiate dependence but no previous inpatient psychiatric treatment reporting increasing depression and strong suicidal thoughts for the past month Speech: Is fluid, conversant, normal rate, tone and volume Language skills are intact Thought processes including: linear and goal oriented Thought content: reporting decreased depression and anxiety. Denies current suicidal/homicidal ideation, planning or intent. Abstract reasoning, and computation: fair Description of associations: denies, none observed Description of abnormal or psychotic thoughts: denies, none observed. Judgment: fair Insight: fair Orientation: alert and oriented to person, place, time and situation Recent and remote memory: intact Attention span and concentration: good Language: expansive Fund of knowledge: average Mood: Euthymic Mood Affect: bright affect DIAGNOSES: 1. Unspecified Depressive Disorder 2. Opiate Use Disorder 3. Stimulant Use Disorder 4. rule out Opiate Induced Depressive Disorder ASSESSMENT: Right now is feeling fine. Says he is a little anxious but is excited about his next step for going to rehab. Plans to live in a usp house and wants to get his GED. Says the highest grade that he finished is 6th grade. Has history of Heroin and per. No more suicidal ideation. Mood is anxious right now. Says that his previous experience in a usp house was not good. Many of the people in the usp house were using drugs and he eventually joined them. Is happy with discharge tomorrow. MANAGEMENT PLAN: Continue all medications, discharge tomorrow TIME SPENT: 25 minutes. Vital Signs Vital Signs Date Time Temp Pulse Resp B/P (MAP) Pulse Ox O2 Delivery O2 Flow Rate FiO2 05/17/21 06:19 97.7 78 20 158/60 (92) 100 Room Air Current Medications Current Medications Medications (Trade) Dose Ordered Sig/Flora Route PRN Reason Start Time Stop Time Status Last Admin Dose Admin Acetaminophen (Tylenol Tab) 650 mg Q6HP PRN PO HEADACHE or MILD DISCOMFORT 05/12/21 17:00 Al Hydrox/Mg Hydrox/Simethicone (Mylanta) 30 ml Q4HP PRN PO HEARTBURN/INDIGESTION 05/12/21 17:00 Buprenorphine/ Naloxone (Suboxone 8/2mg) 1 tab DAILY SL 05/14/21 09:00 05/17/21 08:22 Buprenorphine/ Naloxone (Suboxone 8/2mg) 1 tab DAILY SL 05/12/21 09:00 05/13/21 10:58 DC 05/13/21 08:52 Bupropion HCl (Wellbutrin Sr) 100 mg BID PO 05/13/21 09:00 05/15/21 13:44 DC 05/15/21 08:04 Bupropion HCl (Wellbutrin Sr) 100 mg DAILY PO 05/16/21 09:00 05/19/21 12:00 05/17/21 08:05 Citalopram Hydrobromide (CeleXA) 5 mg DAILY PO 05/16/21 09:00 05/17/21 08:06 Home Med (Med Rec Complete!) ASDIRECTED XX 05/12/21 08:30 05/12/21 08:34 DC Hydroxyzine HCl (Atarax) 50 mg Q6HP PRN PO anxiety 05/13/21 09:35 05/15/21 23:47 Lorazepam (Ativan) 1 mg Q6HP PRN PO ANXIETY/AGITATION 05/12/21 23:05 05/13/21 09:37 DC 05/12/21 23:35 Lorazepam (Ativan) 2 mg STAT STAT PO 05/12/21 12:05 05/12/21 12:06 DC 05/12/21 12:12 Magnesium Hydroxide (Milk Of Magnesia) 30 ml DAILYPRN PRN PO CONSTIPATION 05/12/21 17:00 05/13/21 09:53 Miscellaneous (Unresolved Clarification Entry) SEE LABEL COMMENTS UNRESOLVED XX 05/14/21 00:01 05/13/21 11:15 DC Neomycin/ Polymyxin/ Bacitracin (Neosporin) open lesions on ri... BID TOP 05/13/21 09:00 05/17/21 21:01 05/16/21 09:12 Nicotine (Nicoderm Cq 21mg) 1 patch DAILY TD 05/13/21 09:00 05/13/21 10:14 DC Nicotine (Nicorette) 2 mg Q4HP PRN PO NICOTINE WITHDRAWAL 05/13/21 10:15 05/13/21 11:11 DC Nicotine (Nicorette) 4 mg Q2HP PRN PO SMOKING CESSATION 05/12/21 10:45 05/13/21 10:58 DC 05/13/21 08:52 Nicotine (Nicorette) 4 mg Q4HP PRN PO NICOTINE WITHDRAWAL 05/13/21 14:00 05/13/21 11:16 DC Nicotine (Nicorette) 4 mg Q4HP PRN PO NICOTINE WITHDRAWAL 05/13/21 15:00 05/17/21 10:55 Olanzapine (ZyPREXA ZYDIS) 5 mg Q6HP PRN PO ANXIETY/AGITATION 05/13/21 14:25 05/16/21 09:19 Quetiapine Fumarate (SEROquel) 100 mg QHS PO 05/16/21 21:00 05/16/21 20:01 Trazodone HCl (Desyrel) 50 mg QHSP PRN PO INSOMNIA 05/12/21 17:00 05/13/21 09:37 DC 05/12/21 20:29 Trazodone HCl (Desyrel) 100 mg QHS PO 05/13/21 21:00 05/16/21 09:56 DC 05/15/21 19:55 Allergies Coded Allergies: cyclobenzaprine (Verified Allergy, Unknown, 09/07/20) OK MCGARRY EXECUTIVE PILOT May 17, 2021 11:12
[2021-05-17] MEDS ORDERED: CELE10TA PO (12:28)
[2021-05-17] MEDS ORDERED: QUET100T2 PO (12:28)
[2021-05-17] MEDS ORDERED: NICO2GUM PO (12:28)
[2021-05-17 17:20] VITALS: BP 129/78
[2021-05-17] MEDS: QUEtiapine FUMARATE 100 MG TAB PO SCH (20:02)
[2021-05-18] MEDS: NICOTINE POLACRILEX 2 MG GUM PO PRN ×2 (05:50→10:13)
[2021-05-18 05:56] VITALS: BP 123/74
[2021-05-18 06:00] VITALS: BP 123/74
[2021-05-18] MEDS: BUPRENORPHINE/NALOXONE 8-2MG SUBLINGUAL TABLET(SUBOXONE) SL SCH (08:12)
--- NOTE | 2021-05-18 08:57 | MHDSPDOC ---
[facility] Discharge Summary Discharge Summary DATE OF ADMISSION: May 12, 2021 at 16:59 DATE OF DISCHARGE: May 18, 2021 1143 DISCHARGE DIAGNOSES: 1. Unspecified Depressive Disorder 2. Opiate Use Disorder 3. Stimulant Use Disorder 4. rule out Opiate Induced Depressive Disorder REASON FOR ADMISSION: : Patient is a 30 -year-old Single, Unemployed, , male, who [has a long history of opiate dependence but no previous inpatient psychiatric treatment. Patient came to the emergency room reporting increasing depression and strong suicidal thoughts for the past month. He stated that he has been in treatment for his drug dependence is currently taking Suboxone but has been using heroin on and off and has been homeless for the past 2 years. He reported that he is tired of living a life like this and was going to end his life and took an overdose of the heroin about 2 weeks ago but did not tell anybody about his suicidal intent 1 was not admitted. He stated that he is having more suicidal thoughts and was making detailed plans of overdosing on heroin again but instead came to the emergency room seeking help. He denies any psychotic symptoms denies any clear precipitant but stated that he is tired of his life wants help instead of dying and failure to that he can use another inpatient rehabilitation treatment. He claims that he had 2 previous rehab treatment but the last one was several years ago and feels that he needs inpatient treatment now. He is denying any psychotic symptoms denies any history of andrade and denies any command hallucination and is willing to contract for safety. He reports that he came to [place] for his cousin who "lied" to him. He now is homeless and reports no current work history, last employment was in 2005. States that he wants to apply for disability. Last history of Rehab was last year at [facility]. VITAL SIGNS: See below. CONSULTANTS INVOLVED: See Medical H + P by Hospitalist TREATMENT AND PROGRESS ON THE UNIT : TREATMENT AND PROGRESS ON THE UNIT: Patient was admitted to the [facility] on a 9.39 legal status he was afforded the following treatment modalities: 1) Individual Therapy 2) Group Therapy 3) Medication Management 4) Milieu Therapy 5) Safe Environment HOSPITAL COURSE: Patient came to the unit for substance abuse disorder after overdosing on a combination of opiates and Lianne. Patient was engaged in individual 1:1 therapy and participated in group therapy and says that he thinks it is helped him. Patient was also given medications to reduce withdrawal symptoms from opiates,was started on Suboxone . Patient claims that he is serious about rehabilitation and says that he wants to be a part of his family's life and he cannot until he gets clean. DISCHARGE ASSESSMENT: Patient is alert and oriented times 3. Patient seems serious about going to rehab and wanting to end substance abuse. In today's interview, patient is alert and oriented, pts dress is appropriate. Hygiene and grooming is well-kempt. Smiles on approach and is pleasant and engaged in the interview. Denies depression and anxiety. Denies suicidal and homicidal ideation, planning or intent. Denies and is not observed with andrade, psychotic symptoms of delusions, bizarre thinking, obsessions, paranoia, ruminations illogical thoughts, flight of ideas or having poor insight and judgement. Patient has normal mentation, declines further hospitalization on a voluntary status and meets criteria for discharge today. MENTAL STATUS EXAMINATION ON DISCHARGE: Patient is a 30-year old male, who is admitted to psychiatry after reporting being tired of being an "addict" Speech is normal in content and rate. Language skills are normal, average vocabulary. Thought processes including: Linear. Thought content: Normal. Abstract reasoning, and computation: good. Description of associations: Fair. Description of abnormal or psychotic thoughts: none. Judgment: good. Insight: good. Orientation to alert and oriented x3. Recent and remote memory: Intact. Attention span and concentration: Normal. Language: Average word content. Fund of knowledge: Average. Mood: Patient reports feeling well. Affect: Normal. MEDICATIONS ON DISCHARGE: Refer to medication list PLAN/FOLLOWUP ARRANGEMENTS: Patient is going to be discharged to rehabilitation facility in [place]. At the facility they will handle any of the medications that he is on. The amount of time spent in the coordination of care for this patient was approximately 25 minutes. ETOH/Disorder Med Rx ETOH/DRUG DISORDER RX: Given to pt at d/c Vital Signs/I&Os Vital Signs Date Time Temp Pulse Resp B/P (MAP) Pulse Ox O2 Delivery O2 Flow Rate FiO2 05/18/21 05:56 97.8 74 18 123/74 (90) 97 Room Air Medications Scheduled Buprenorphine HCl/Naloxone HCl (Buprenorphine-Nalox 8-2Mg Film) 8 Mg-2 Mg Film, 1 DOSE SL DAILY, (Reported) Citalopram Hydrobromide (Celexa) 10 Mg Tablet, 10 MG PO QAM for Mood, #7 Quetiapine Fumarate (Quetiapine Fumarate) 100 Mg Tablet, 100 MG PO QHS for Sleep, #7 Scheduled PRN Nicotine Polacrilex (Nicotine Gum) 2 Mg Gum, 4 MG PO Q4HP PRN for NICOTINE WITHDRAWAL, #1 Allergies Coded Allergies: cyclobenzaprine (Verified Allergy, Unknown, 09/07/20) OK MCGARRY NP May 18, 2021 08:57
[2021-05-18] MEDS ORDERED: CitaloPRAM (CeleXA) 10 MG TABLET PO SCH (09:00)
== END 2021-05-18 11:58 | DRG 754 ==
LOC: M ED 19:42 → M ED INP 05-12 16:59 → M PSY 05-12 18:40
PROVIDERS: ADMIT Psychiatry & Neurology Psychiatry; ATTEND Psychiatry & Neurology Psychiatry
DX: F32.9 Major depressive disorder, single episode, unspecified (principal); B19.20 Unspecified viral hepatitis C without hepatic coma; F15.90 Other stimulant use, unspecified, uncomplicated; F11.90 Opioid use, unspecified, uncomplicated; Z79.899 Other long term (current) drug therapy; Z88.8 Allergy status to other drugs, medicaments and biological substances; F17.200 Nicotine dependence, unspecified, uncomplicated